=== PATIENT | male | born 1985 | race Two or more races ===

== ENCOUNTER 2022-05-08 15:14 | Inpatient (IN) | payer MEDICAID, OTHER ==
[~2022-05-08] VITALS: Ht 172.7 cm; Wt 120.5 kg
[2022-05-08] MEDS ORDERED: LORazepam 2MG/ML-1ML VIAL IV ONE (15:30)
[2022-05-08] MEDS ORDERED: cloNIDine HCL 0.1 MG TAB PO ONE (15:30)
[2022-05-08] MEDS ORDERED: THIAMINE 100mg/ml INJ (200mg/2ml VIAL) IV ONE (15:30)
[2022-05-08] MEDS ORDERED: SODIUM CHLORIDE 0.9% 1,000 ML IV ONE (15:30)
[2022-05-08 16:01] LABS: Red Cell Distribution Width 14.1 % (11.8-14.3); White Blood Cell 11.3 10^3/uL (4.4-10.8)
[2022-05-08 16:08] LABS: Basophils # (auto) 0.1 10 ^3/uL (0-0.2); Basophils % (auto) 0.8 % (0.0-2.0); Eosinophils # (auto) 0.2 10 ^3/uL (0-0.8); Eosinophils % (auto) 1.4 % (0.0-7.0); Hematocrit 49.8 % (41.0-53.0); Hemoglobin 16.8 g/dL (13.5-17.5); Lymphocytes # (auto) 4.7 10 ^3/uL (0.4-5.4); Lymphocytes % (auto) 41.9 % (10.0-50.0); Mean Corpuscular Hemoglobin 32.4 pg (28.0-32.0); Mean Corpuscular Hgb Conc. 33.8 g/dL (32.0-36.0); Monocytes # (auto) 0.9 10 ^3/uL (0-1.3); Neutrophils # (auto) 5.4 10 ^3/uL (1.6-8.6); Neutrophils % (auto) 47.9 % (37.0-80.0); Nucleated Red Blood Cells % 0.4 %; Red Blood Cells 5.19 10^6/uL (4.5-5.90)
[2022-05-08 16:18] LABS: Alanine Aminotransferase 276 U/L (16-61); Albumin 3.7 g/dL (3.4-5.0); Anion Gap 9 (5-15); Aspartate Aminotransferase 151 U/L (15-37); BUN/Creatinine Ratio 15.4; Blood Alcohol < 3.0 mg/dL (0-5); Blood Urea Nitrogen 12 mg/dL (7-18); Calcium 8.8 mg/dL (8.5-10.1); Carbon Dioxide 24 mmol/L (21-32); Chloride 106 mmol/L (98-107); GFR African American 143 mL/min; GFR Non-African American 118 mL/min; Glucose 107 mg/dL (74-106); Potassium 3.3 mmol/L (3.5-5.1); Sodium 139 mmol/L (136-145)
[2022-05-08 16:19] LABS: Urine Bacteria FEW /hpf (None Seen); Urine Blood Negative /uL (Negative); Urine Mucus FEW (None Seen); Urine Specific Gravity 1.026 (1.001-1.035); Urine WBC <1 /hpf (0 - 3)
[2022-05-08 16:20] LABS: Alkaline Phosphatase 129 U/L (45-117); Bilirubin, Total 1.2 mg/dL (0.2-1.0); Total Protein 8.2 g/dL (6.4-8.2)
[2022-05-08] MEDS ORDERED: ONDANSETRON HCL 4 MG/2 ML VIAL IV PRN (17:45)
[2022-05-08] MEDS ORDERED: MORPHINE SULFATE INJ 2 MG/ml SYRG IV PRN (17:45)
[2022-05-08] MEDS: SODIUM CHLORIDE 0.9% 1,000 ML IV SCH (18:49)
[2022-05-08] MEDS: chlordiazePOXIDE HCL 25 MG CAP PO SCH ×2 (18:49→23:58)
[2022-05-09] VITALS (7 sets, daily range): BP systolic 139–172; BP diastolic 77–97
[2022-05-09] MEDS: hydrALAZINE HCL 20 MG/ML VL IV PRN ×2 (00:05→12:53)
[2022-05-09 06:04] LABS: Basophils # (auto) 0 10 ^3/uL (0-0.2); Basophils % (auto) 0.8 % (0.0-2.0); Eosinophils # (auto) 0.2 10 ^3/uL (0-0.8); Eosinophils % (auto) 3.2 % (0.0-7.0); Hematocrit 43.9 % (41.0-53.0); Hemoglobin 14.9 g/dL (13.5-17.5); Lymphocytes # (auto) 2.2 10 ^3/uL (0.4-5.4); Lymphocytes % (auto) 36.2 % (10.0-50.0); Mean Corpuscular Hemoglobin 32.5 pg (28.0-32.0); Mean Corpuscular Volume 95.5 fL (80.0-100.0); Monocytes # (auto) 0.6 10 ^3/uL (0-1.3); Monocytes % (auto) 9.8 % (0.0-12.0); Neutrophils # (auto) 3.1 10 ^3/uL (1.6-8.6); Nucleated Red Blood Cells % 0.2 %; Red Cell Distribution Width 13.9 % (11.8-14.3); White Blood Cell 6.1 10^3/uL (4.4-10.8)
[2022-05-09] MEDS: SODIUM CHLORIDE 0.9% 1,000 ML IV SCH ×2 (06:25→10:25)
[2022-05-09 06:38] LABS: Potassium 3.5 mmol/L (3.5-5.1)
[2022-05-09 06:47] LABS: Albumin 3.2 g/dL (3.4-5.0); BUN/Creatinine Ratio 17.8; Bilirubin, Total 1.1 mg/dL (0.2-1.0); Total Protein 6.7 g/dL (6.4-8.2)
[2022-05-09] MEDS: chlordiazePOXIDE HCL 25 MG CAP PO SCH (09:45)
[2022-05-09] MEDS ORDERED: PANTOPRAZOLE 40 MG/10 ML VIAL INJ IV SCH (10:00)
[2022-05-09] MEDS ORDERED: POTASSIUM EFFERVESENT TAB 25 MEQ PO SCH (10:00)
[2022-05-09] MEDS ORDERED: chlordiazePOXIDE HCL 25 MG CAP PO SCH (10:00)
[2022-05-09] MEDS ORDERED: FOLIC ACID 1 MG, MULTIPLE VITAMIN 10 ML, MAGNESIUM SULF SDV 50% 8 MEQ, THIAMINE INJ 100... INJ SCH ×5 (12:00)
[2022-05-09] MEDS ORDERED: LORazepam 0.5 MG TAB PO ONE (14:00)
[2022-05-09] MEDS ORDERED: AMLO-496 PO (17:29)
[2022-05-10] MEDS ORDERED: chlordiazePOXIDE HCL 25 MG CAP PO SCH (10:00)
[2022-05-11] MEDS ORDERED: chlordiazePOXIDE HCL 25 MG CAP PO SCH (07:00)
== END 2022-05-09 18:04 | disposition home or self-care (01) | DRG 111 ==
LOC: ER 15:14 → TELE 17:41 → TELE-E-ADS 05-09 12:32 → TELE-CENTR 05-09 15:00
PROVIDERS: ADMIT Nurse Practitioner Family; ATTEND Student in an Organized Health Care Education/Training Program
DX: H81.10 Benign paroxysmal vertigo, unspecified ear (principal); G45.9 Transient cerebral ischemic attack, unspecified; Z20.822 Contact with and (suspected) exposure to COVID-19; D72.829 Elevated white blood cell count, unspecified; E87.6 Hypokalemia; F41.9 Anxiety disorder, unspecified; I10 Essential (primary) hypertension; I16.1 Hypertensive emergency; F10.90 Alcohol use, unspecified, uncomplicated; Y90.9 Presence of alcohol in blood, level not specified; K70.0 Alcoholic fatty liver
CPT/HCPCS: 36415; 70450; 71045; 76705; 80053; 80320; 81001; 84484; 85025; 85379; 87426; 96361; 96374; 96375; C9113; G0378

== ENCOUNTER 2022-08-04 03:17 | Emergency (ER) | payer MEDICAID ==
[~2022-08-04] VITALS: Ht 172.7 cm; Wt 118.0 kg
[~2022-08-04 03:17] MED LIST: AMLO-496 PO
[2022-08-04] MEDS ORDERED: LORazepam 2MG/ML-1ML VIAL IM ONE (04:30)
[2022-08-04] MEDS ORDERED: ONDANSETRON ODT 4 MG TAB PO ONE (04:30)
[2022-08-04 04:41] LABS: Basophils # (auto) 0.1 10 ^3/uL (0-0.2); Eosinophils # (auto) 0.1 10 ^3/uL (0-0.8); Eosinophils % (auto) 0.6 % (0.0-7.0); Hematocrit 45.7 % (41.0-53.0); Hemoglobin 16.1 g/dL (13.5-17.5); Lymphocytes # (auto) 2.6 10 ^3/uL (0.4-5.4); Lymphocytes % (auto) 28.4 % (10.0-50.0); Mean Corpuscular Hemoglobin 33.4 pg (28.0-32.0); Mean Corpuscular Hgb Conc. 35.3 g/dL (32.0-36.0); Mean Corpuscular Volume 94.7 fL (80.0-100.0); Monocytes # (auto) 0.7 10 ^3/uL (0-1.3); Monocytes % (auto) 7.5 % (0.0-12.0); Neutrophils # (auto) 5.7 10 ^3/uL (1.6-8.6); Neutrophils % (auto) 62.5 % (37.0-80.0); Nucleated Red Blood Cells % 0.1 %; Red Blood Cells 4.83 10^6/uL (4.5-5.90); White Blood Cell 9.2 10^3/uL (4.4-10.8)
[2022-08-04 04:51] LABS: Albumin 3.4 g/dL (3.4-5.0); Anion Gap 7 (5-15); BUN/Creatinine Ratio 12.8 (10.0-20.0); Blood Alcohol < 3.0 mg/dL (0-5); Blood Urea Nitrogen 10 mg/dL (7-18); Calcium 8.3 mg/dL (8.5-10.1); Carbon Dioxide 25 mmol/L (21-32); Chloride 103 mmol/L (98-107); GFR African American 143 mL/min; GFR Non-African American 118 mL/min; Glucose 139 mg/dL (74-106); Potassium 3.6 mmol/L (3.5-5.1); Sodium 135 mmol/L (136-145)
[2022-08-04 04:54] LABS: Alanine Aminotransferase 145 U/L (16-61); Alkaline Phosphatase 128 U/L (45-117); Aspartate Aminotransferase 62 U/L (15-37); Bilirubin, Total 0.8 mg/dL (0.2-1.0); Total Protein 7.8 g/dL (6.4-8.2)
[2022-08-04 06:44] LABS: Urine Bacteria NONE SEEN /hpf (None Seen); Urine Blood Negative /uL (Negative); Urine Mucus FEW (None Seen); Urine Specific Gravity 1.019 (1.001-1.035); Urine WBC <1 /hpf (0 - 3)
[2022-08-04 07:06] VITALS: BP 167/92
[2022-08-04 07:09] LABS: Alcohol, Urine < 3.0 mg/dL (0-10); Amphetamine Screen, Urine NEGATIVE (NEGATIVE); Barbiturate Scree,Urine NEGATIVE (NEGATIVE); Benzodiazephine Screen, Urine NEGATIVE (NEGATIVE); Cannabinoid Screen, Urine POSITIVE (NEGATIVE); Cocaine Screen, Urine NEGATIVE (NEGATIVE)
[2022-08-04 07:17] LABS: Opiate Scree,Urine NEGATIVE (NEGATIVE); Phencyclidine Screen, Urine NEGATIVE (NEGATIVE)
== END 2022-08-04 07:14 | disposition home or self-care (01) ==
LOC: ER 03:17
DX: F10.239 Alcohol dependence with withdrawal, unspecified (principal); F41.9 Anxiety disorder, unspecified; R74.01 Elevation of levels of liver transaminase levels; E86.0 Dehydration; Y90.9 Presence of alcohol in blood, level not specified
CPT/HCPCS: 36415; 80053; 80307; 80320; 81001; 85025; 93005; 96372; 99284; J2060; Q0162

== ENCOUNTER 2023-01-04 16:58 | Emergency (ER) | payer MEDICAID ==
[~2023-01-04] VITALS: Ht 172.7 cm; Wt 120.8 kg
[~2023-01-04 16:58] MED LIST changes: -AMLO-496 PO; +AMLO1TAB23 PO
[2023-01-04 17:20] VITALS: BP 170/105; PULSE 128; RESP 18; O2SAT 97
[2023-01-04] MEDS ORDERED: THIAMINE 100mg/ml INJ (200mg/2ml VIAL) IV ONE (17:30)
[2023-01-04] MEDS ORDERED: SODIUM CHLORIDE 0.9% 1,000 ML IV ONE (17:30)
[2023-01-04 18:06] LABS: Basophils # (auto) 0.1 10 ^3/uL (0-0.2); Eosinophils # (auto) 0.1 10 ^3/uL (0-0.8); Eosinophils % (auto) 0.7 % (0.0-7.0); Hematocrit 50.3 % (41.0-53.0); Hemoglobin 17.6 g/dL (13.5-17.5); Lymphocytes # (auto) 3.6 10 ^3/uL (0.4-5.4); Lymphocytes % (auto) 33.2 % (10.0-50.0); Mean Corpuscular Hemoglobin 32.8 pg (28.0-32.0); Mean Corpuscular Hgb Conc. 35.1 g/dL (32.0-36.0); Mean Corpuscular Volume 93.4 fL (80.0-100.0); Monocytes # (auto) 0.8 10 ^3/uL (0-1.3); Monocytes % (auto) 7.5 % (0.0-12.0); Neutrophils # (auto) 6.3 10 ^3/uL (1.6-8.6); Neutrophils % (auto) 57.6 % (37.0-80.0); Nucleated Red Blood Cells % 0.2 %; Red Blood Cells 5.38 10^6/uL (4.5-5.90); Red Cell Distribution Width 14.4 % (11.8-14.3)
[2023-01-04 18:20] LABS: Alanine Aminotransferase 171 U/L (7-40); Albumin 4.4 g/dL (3.2-4.8); Alkaline Phosphatase 154 U/L (46-116); Anion Gap 12 (5-15); Aspartate Aminotransferase 115 U/L (13-40); Blood Urea Nitrogen 6 mg/dL (9-23); Calcium 9.2 mg/dL (8.7-10.4); Carbon Dioxide 23 mmol/L (20-30); Chloride 103 mmol/L (98-107); Glucose 121 mg/dL (74-106); Potassium 3.3 mmol/L (3.5-5.1); Sodium 138 mmol/L (136-145)
[2023-01-04 18:21] LABS: Total Protein 8.3 g/dL (5.7-8.2)
[2023-01-04 18:28] LABS: Blood Alcohol 285.1 mg/dL (<10)
== END 2023-01-04 18:40 | disposition left against medical advice (07) ==
LOC: ER 16:58
DX: F10.239 Alcohol dependence with withdrawal, unspecified (principal); F41.9 Anxiety disorder, unspecified; Z53.21 Procedure and treatment not carried out due to patient leaving prior to being seen by health care provider; Y90.9 Presence of alcohol in blood, level not specified
CPT/HCPCS: 36415; 80053; 80320; 85025

== ENCOUNTER 2023-01-10 06:35 | Emergency (ER) | payer MEDICAID ==
[~2023-01-10] VITALS: Ht 172.7 cm; Wt 121.6 kg
[2023-01-10] MEDS ORDERED: SODIUM CHLORIDE 0.9% 1,000 ML IV ONE ×2 (07:00→16:15)
[2023-01-10] MEDS ORDERED: LORazepam 2MG/ML-1ML VIAL IV ONE ×2 (07:00→16:15)
[2023-01-10 07:16] LABS: Basophils # (auto) 0.1 10 ^3/uL (0-0.2); Basophils % (auto) 0.9 % (0.0-2.0); Eosinophils # (auto) 0.1 10 ^3/uL (0-0.8); Eosinophils % (auto) 1.3 % (0.0-7.0); Hematocrit 47.9 % (41.0-53.0); Hemoglobin 16.8 g/dL (13.5-17.5); Lymphocytes # (auto) 2.2 10 ^3/uL (0.4-5.4); Lymphocytes % (auto) 38.4 % (10.0-50.0); Mean Corpuscular Hemoglobin 32.7 pg (28.0-32.0); Mean Corpuscular Hgb Conc. 35.1 g/dL (32.0-36.0); Mean Corpuscular Volume 93.1 fL (80.0-100.0); Monocytes # (auto) 0.5 10 ^3/uL (0-1.3); Monocytes % (auto) 8.9 % (0.0-12.0); Neutrophils # (auto) 2.9 10 ^3/uL (1.6-8.6); Neutrophils % (auto) 50.5 % (37.0-80.0); Nucleated Red Blood Cells % 0.4 %; Red Blood Cells 5.15 10^6/uL (4.5-5.90); Red Cell Distribution Width 14.3 % (11.8-14.3); White Blood Cell 5.8 10^3/uL (4.4-10.8)
[2023-01-10 08:21] LABS: Platelet Estimate Adequate
[2023-01-10 08:35] LABS: Alanine Aminotransferase 159 U/L (7-40); Albumin 4.4 g/dL (3.2-4.8); Alkaline Phosphatase 134 U/L (46-116); Anion Gap 12 (5-15); Aspartate Aminotransferase 168 U/L (13-40); Bilirubin, Total 1.3 mg/dL (0.2-1.0); Blood Alcohol 20.5 mg/dL (<10); Calcium 9.1 mg/dL (8.5-10.1); Carbon Dioxide 24 mmol/L (20-30); Chloride 100 mmol/L (98-107); Glucose 135 mg/dL (74-106); Potassium 3.4 mmol/L (3.5-5.1); Sodium 136 mmol/L (136-145)
[2023-01-10 08:49] LABS: BUN/Creatinine Ratio 6.5 (10.0-20.0); Blood Urea Nitrogen < 5 mg/dL (9-23)
[2023-01-10 09:07] VITALS: PULSE 78; RESP 18; O2SAT 98
[2023-01-10 09:13] LABS: Acetaminophen < 2.0 UG/ML (10.0-20.0)
[2023-01-10 09:18] LABS: Salicylate < 3.0 mg/dL (2.8-20.0)
[2023-01-10 09:24] LABS: Lipase 74 U/L (12-53)
[2023-01-10 09:25] LABS: Magnesium 1.6 mg/dL (1.6-2.6)
[2023-01-10] MEDS ORDERED: PANTOPRAZOLE 40 MG TAB PO ONE (10:30)
[2023-01-10] MEDS ORDERED: ONDANSETRON HCL 4 MG/2 ML VIAL IV ONE (10:30)
[2023-01-10] MEDS ORDERED: POTASSIUM EFFERVESENT TAB 25 MEQ PO ONE (16:15)
[2023-01-10 19:30] VITALS: PULSE 92; RESP 17; O2SAT 95
[2023-01-10 20:00] VITALS: TEMP 97.8
[2023-01-10] MEDS ORDERED: CHL25C GT (23:24)
[2023-01-10 23:30] VITALS: BP 155/94; PULSE 81; RESP 15; O2SAT 95
== END 2023-01-10 23:51 | disposition home or self-care (01) ==
LOC: ER 06:35
DX: F10.139 Alcohol abuse with withdrawal, unspecified (principal); F41.9 Anxiety disorder, unspecified; E86.0 Dehydration; I10 Essential (primary) hypertension; E87.6 Hypokalemia; R74.8 Abnormal levels of other serum enzymes; Z79.899 Other long term (current) drug therapy; Y90.0 Blood alcohol level of less than 20 mg/100 ml
CPT/HCPCS: 36415; 71045; 80053; 80320; 80329; 83690; 83735; 84484; 85025; 93005; 96361; 96374; 96375; 96376; 99285; J2060; J2405; J7030

== ENCOUNTER 2023-05-18 14:37 | Inpatient (IN) | payer MEDICAID ==
[~2023-05-18] VITALS: Ht 172.7 cm; Wt 121.6 kg
[~2023-05-18 14:37] MED LIST changes: +CHL25C GT
[2023-05-18] MEDS: levETIRAcetam 1000 mg/100ml 100 ML IV ONE (17:16)
[2023-05-18] MEDS: MIDAZOLAM HCL 2MG/2ML 2ml VIAL (1mg/ml) IV ONE ×2 (17:16→21:20)
[2023-05-18] MEDS: SODIUM CHLORIDE 0.9% 1,000 ML IV ONE (17:49)
[2023-05-18 17:50] LABS: Urine Bacteria NONE SEEN /hpf (None Seen); Urine Blood Negative /uL (Negative); Urine Clarity Clear (Clear); Urine Protein, UAD Negative (Negative); Urine Specific Gravity 1.004 (1.001-1.035); Urine WBC 1 /hpf (0 - 3)
[2023-05-18] MEDS: ONDANSETRON HCL 4 MG/2 ML VIAL IV ONE (17:50)
[2023-05-18] MEDS: KETOROLAC TROMETH 30 MG/ML 1ML VIAL IV ONE (17:50)
[2023-05-18 17:52] LABS: Urine Color STRAW (Yellow)
[2023-05-18 18:03] LABS: Basophils # (auto) 0 10 ^3/uL (0-0.2); Eosinophils # (auto) 0 10 ^3/uL (0-0.8); Hemoglobin 14.5 g/dL (13.5-17.5); Monocytes # (auto) 0.4 10 ^3/uL (0-1.3); Red Cell Distribution Width 15.3 % (11.8-14.3)
[2023-05-18 18:04] LABS: Basophils % (auto) 0.5 % (0.0-2.0); Eosinophils % (auto) 0.5 % (0.0-7.0); Hematocrit 43.7 % (41.0-53.0); Lymphocytes # (auto) 1.8 10 ^3/uL (0.4-5.4); Lymphocytes % (auto) 28.9 % (10.0-50.0); Mean Corpuscular Hemoglobin 32.2 pg (28.0-32.0); Mean Corpuscular Hgb Conc. 33.1 g/dL (32.0-36.0); Mean Corpuscular Volume 97.1 fL (80.0-100.0); Neutrophils # (auto) 4.1 10 ^3/uL (1.6-8.6); Neutrophils % (auto) 64.1 % (37.0-80.0); Nucleated Red Blood Cells % 0.1 %; White Blood Cell 6.4 10^3/uL (4.4-10.8)
[2023-05-18 18:18] LABS: INR 1.31 (0.9-1.15); Partial Thromboplastin Time 31.3 SEC (24.5-34.5); Prothrombin Time 13.5 sec (9.3-11.8)
[2023-05-18 18:19] LABS: Alanine Aminotransferase 100 U/L (7-40); Albumin 3.6 g/dL (3.2-4.8); Alkaline Phosphatase 167 U/L (46-116); Anion Gap 10 (5-15); Aspartate Aminotransferase 212 U/L (13-40); BUN/Creatinine Ratio 7.8 (10.0-20.0); Bilirubin, Total 1.1 mg/dL (0.2-1.0); Blood Urea Nitrogen 5 mg/dL (9-23); Calcium 8.4 mg/dL (8.5-10.1); Carbon Dioxide 25 mmol/L (20-30); Chloride 106 mmol/L (98-107); Glucose 86 mg/dL (74-106); Sodium 141 mmol/L (136-145); Total Protein 6.7 g/dL (5.7-8.2)
[2023-05-18 20:17] LABS: Amphetamine Screen, Urine Neg (NEGATIVE); Barbiturate Scree,Urine Neg (NEGATIVE); Benzodiazephine Screen, Urine Neg (NEGATIVE); Cannabinoid Screen, Urine Neg (NEGATIVE); Cocaine Screen, Urine Neg (NEGATIVE); Opiate Scree,Urine Neg (NEGATIVE); Phencyclidine Screen, Urine Neg (NEGATIVE)
[2023-05-18] MEDS ORDERED: ONDANSETRON HCL 4 MG/2 ML VIAL IV PRN (21:15)
[2023-05-18] MEDS ORDERED: NITROGLYCERIN 0.4 MG SL TAB SL PRN (21:15)
[2023-05-18] MEDS ORDERED: MORPHINE SULFATE INJ 2 MG/ml SYRG IV PRN (21:15)
[2023-05-18] MEDS ORDERED: DOCUSATE SOD 100 MG CAP PO PRN (21:15)
[2023-05-18] MEDS ORDERED: HYDROcodone-ACET 5/325MG TAB PO PRN (21:15)
[2023-05-18] MEDS ORDERED: TRAZ-227 PO (21:32)
[2023-05-18] MEDS ORDERED: AMLO1TAB22 PO (21:32)
[2023-05-18] MEDS ORDERED: LOSA50TA46 PO (21:32)
[2023-05-18] MEDS: traZODone HCL 50 MG TAB PO SCH (22:11)
[2023-05-18] MEDS: chlordiazePOXIDE HCL 25 MG CAP PO SCH (22:11)
[2023-05-18] MEDS: PANTOPRAZOLE 40 MG/10 ML VIAL INJ IV SCH (22:11)
[2023-05-18] MEDS: SODIUM CHLORIDE 0.9% 1,000 ML IV SCH (22:13)
[2023-05-18] MEDS: levETIRAcetam 500 mg/100ml 100 ML IV SCH (22:13)
[2023-05-19] VITALS (9 sets, daily range): BP systolic 123–162; BP diastolic 74–91; PULSE 81–105; RESP 16–20; TEMP 97.9–98.4; O2SAT 93–96
[2023-05-19 05:21] LABS: Basophils # (auto) 0 10 ^3/uL (0-0.2); Eosinophils # (auto) 0.1 10 ^3/uL (0-0.8); Lymphocytes # (auto) 1.8 10 ^3/uL (0.4-5.4); Monocytes # (auto) 0.4 10 ^3/uL (0-1.3); Neutrophils # (auto) 2.2 10 ^3/uL (1.6-8.6); White Blood Cell 4.6 10^3/uL (4.4-10.8)
[2023-05-19 05:28] LABS: Basophils % (auto) 0.7 % (0.0-2.0); Eosinophils % (auto) 2.9 % (0.0-7.0); Hematocrit 38.6 % (41.0-53.0); Lymphocytes % (auto) 38.9 % (10.0-50.0); Mean Corpuscular Hgb Conc. 33.7 g/dL (32.0-36.0); Monocytes % (auto) 9.3 % (0.0-12.0); Neutrophils % (auto) 48.2 % (37.0-80.0); Nucleated Red Blood Cells % 0.2 %; Red Blood Cells 3.94 10^6/uL (4.5-5.90); Red Cell Distribution Width 15.5 % (11.8-14.3)
[2023-05-19 05:40] LABS: Alanine Aminotransferase 86 U/L (7-40); Albumin 3.3 g/dL (3.2-4.8); Alkaline Phosphatase 151 U/L (46-116); Anion Gap 9 (5-15); Aspartate Aminotransferase 180 U/L (13-40); BUN/Creatinine Ratio 8.3 (10.0-20.0); Blood Urea Nitrogen 5 mg/dL (9-23); Calcium 8.5 mg/dL (8.5-10.1); Carbon Dioxide 23 mmol/L (20-30); Chloride 106 mmol/L (98-107); Glucose 71 mg/dL (74-106); Potassium 3.8 mmol/L (3.5-5.1); Sodium 138 mmol/L (136-145)
[2023-05-19 05:41] LABS: Bilirubin, Total 1.4 mg/dL (0.2-1.0); Total Protein 6.4 g/dL (5.7-8.2)
[2023-05-19 07:34] LABS: RBC Morphology Normal
[2023-05-19 07:35] LABS: Platelet Estimate Decreased
[2023-05-19] MEDS: LOSARTAN POTASSIUM 50 MG TAB PO SCH (10:00)
[2023-05-19] MEDS: amLODIPine BESYLATE 5 MG TAB PO SCH (10:00)
[2023-05-19] MEDS ORDERED: FOLIC ACID 1 MG, MULTIPLE VITAMIN 10 ML, MAGNESIUM SULF SDV 50% 8 MEQ, THIAMINE INJ 100... INJ SCH (10:30)
[2023-05-19] MEDS: LORazepam 2MG/ML-1ML VIAL IV PRN (11:16)
[2023-05-19] MEDS: chlordiazePOXIDE HCL 25 MG CAP PO SCH (11:58)
[2023-05-19] MEDS: FOLIC ACID 1 MG, MULTIPLE VITAMIN 10 ML, MAGNESIUM SULF SDV 50% 8 MEQ, THIAMINE INJ 100... INJ SCH (18:07)
[2023-05-19] MEDS: ACETAMINOPHEN 325 MG TAB PO PRN (22:52)
[2023-05-20] MEDS ORDERED: chlordiazePOXIDE HCL 25 MG CAP PO SCH (01:16)
[2023-05-20 06:00] VITALS: BP 112/62; PULSE 82; RESP 16; TEMP 97.9; O2SAT 95
[2023-05-20 06:07] LABS: Basophils # (auto) 0 10 ^3/uL (0-0.2); Eosinophils # (auto) 0.2 10 ^3/uL (0-0.8); Eosinophils % (auto) 3.9 % (0.0-7.0); Lymphocytes # (auto) 1.4 10 ^3/uL (0.4-5.4); Mean Corpuscular Hemoglobin 32.7 pg (28.0-32.0); Monocytes # (auto) 0.4 10 ^3/uL (0-1.3); White Blood Cell 4.1 10^3/uL (4.4-10.8)
[2023-05-20 06:10] LABS: Basophils % (auto) 0.7 % (0.0-2.0); Hematocrit 42.5 % (41.0-53.0); Hemoglobin 14.4 g/dL (13.5-17.5); Lymphocytes % (auto) 33.7 % (10.0-50.0); Mean Corpuscular Hgb Conc. 33.8 g/dL (32.0-36.0); Mean Corpuscular Volume 96.7 fL (80.0-100.0); Monocytes % (auto) 8.6 % (0.0-12.0); Neutrophils # (auto) 2.2 10 ^3/uL (1.6-8.6); Neutrophils % (auto) 53.1 % (37.0-80.0); Nucleated Red Blood Cells % 0.2 %; Red Cell Distribution Width 14.7 % (11.8-14.3)
[2023-05-20 06:20] LABS: Alanine Aminotransferase 85 U/L (7-40); Albumin 3.5 g/dL (3.2-4.8); Alkaline Phosphatase 155 U/L (46-116); Anion Gap 7 (5-15); Aspartate Aminotransferase 158 U/L (13-40); BUN/Creatinine Ratio 8.5 (10.0-20.0); Bilirubin, Total 2.6 mg/dL (0.2-1.0); Blood Urea Nitrogen 5 mg/dL (9-23); Calcium 8.6 mg/dL (8.5-10.1); Carbon Dioxide 25 mmol/L (20-30); Chloride 105 mmol/L (98-107); Glucose 97 mg/dL (74-106); Potassium 3.4 mmol/L (3.5-5.1); Sodium 137 mmol/L (136-145); Total Protein 6.5 g/dL (5.7-8.2)
[2023-05-20] MEDS: SUCRALFATE 1 GM/10 ML ORAL SUSP PO SCH (06:28)
[2023-05-20 08:00] VITALS: PULSE 90
[2023-05-20 08:30] VITALS: BP 140/82; PULSE 90; RESP 17; TEMP 98.1; O2SAT 93
[2023-05-21] MEDS ORDERED: chlordiazePOXIDE HCL 25 MG CAP PO SCH (01:17)
[2023-05-21 08:46] LABS: Hepatitis B Surface Antigen Negative (Negative)
[2023-05-21 09:06] LABS: Hepatitis A Ab IgM Negative
[2023-05-21 09:07] LABS: Hepatitis B Core IgM Negative; Hepatitis C Antibody Negative (Negative)
[2023-05-21 09:16] LABS: Hepatitis B Core Total AB Negative (Negative)
[2023-05-22] MEDS ORDERED: chlordiazePOXIDE HCL 25 MG CAP PO SCH (07:00)
[2023-05-25 08:54] LABS: Hepatitis B Surface Antibody Positive (Negative)
[2023-05-25 09:06] LABS: Hepatitis B Surface Antigen Negative (Negative)
[2023-05-25 09:27] LABS: Hepatitis C Antibody Negative (Negative)
[2023-05-25 09:34] LABS: Hepatitis A Total Antibody Positive (Negative)
== END 2023-05-20 08:40 | disposition left against medical advice (07) | DRG 53 ==
LOC: ER 14:37 → EDBD 14:37 → TELE 21:21 → TELE-CENTR 22:52
PROVIDERS: ADMIT Nurse Practitioner Family; ATTEND Nurse Practitioner Acute Care
DX: G40.89 Other seizures (principal); F10.231 Alcohol dependence with withdrawal delirium; K92.0 Hematemesis; F10.229 Alcohol dependence with intoxication, unspecified; E11.9 Type 2 diabetes mellitus without complications; D69.59 Other secondary thrombocytopenia; E66.01 Morbid (severe) obesity due to excess calories; K70.9 Alcoholic liver disease, unspecified; Y90.7 Blood alcohol level of 200-239 mg/100 ml; K29.20 Alcoholic gastritis without bleeding; F41.9 Anxiety disorder, unspecified; I10 Essential (primary) hypertension; K76.0 Fatty (change of) liver, not elsewhere classified; Z71.41 Alcohol abuse counseling and surveillance of alcoholic; Z68.41 Body mass index [BMI] 40.0-44.9, adult
CPT/HCPCS: 36415; 70450; 71045; 76705; 80053; 80074; 80307; 80320; 81001; 82140; 82728; 84484; 85025; 85610; 85730; 86704; 86706; 86708; 86803; 87340; 96365; 99291; C9113; G0378; J2250

== ENCOUNTER 2023-12-05 14:36 | Inpatient (IN) | payer MEDICAID ==
[~2023-12-05] VITALS: Ht 170.2 cm; Wt 110.6 kg
[~2023-12-05 14:36] MED LIST changes: +AMLO1TAB22 PO; +LOSA-534 PO; +TRAZ-227 PO
[2023-12-05 16:00] VITALS: PULSE 100; RESP 20; O2SAT 98
[2023-12-05 16:09] LABS: Basophils # (auto) 0.1 10 ^3/uL (0-0.2); Basophils % (auto) 1.1 % (0.0-2.0); Eosinophils # (auto) 0.1 10 ^3/uL (0-0.8); Eosinophils % (auto) 1.2 % (0.0-7.0); Hematocrit 41.3 % (41.0-53.0); Hemoglobin 14.3 g/dL (13.5-17.5); Lymphocytes # (auto) 2.2 10 ^3/uL (0.4-5.4); Lymphocytes % (auto) 22.7 % (10.0-50.0); Mean Corpuscular Hemoglobin 36.6 pg (28.0-32.0); Mean Corpuscular Hgb Conc. 34.7 g/dL (32.0-36.0); Mean Corpuscular Volume 105.6 fL (80.0-100.0); Monocytes # (auto) 1.1 10 ^3/uL (0-1.3); Monocytes % (auto) 11.1 % (0.0-12.0); Neutrophils # (auto) 6.2 10 ^3/uL (1.6-8.6); Neutrophils % (auto) 63.9 % (37.0-80.0); Nucleated Red Blood Cells % 0.1 %; Platelet Count (auto) 131 10^3/uL (140-450); Red Blood Cells 3.91 10^6/uL (4.5-5.90); Red Cell Distribution Width 16.6 % (11.8-14.3); White Blood Cell 9.6 10^3/uL (4.4-10.8)
[2023-12-05 16:27] LABS: Alanine Aminotransferase 79 U/L (7-40); Albumin 2.7 g/dL (3.2-4.8); Alkaline Phosphatase 158 U/L (46-116); Anion Gap 5 (5-15); Aspartate Aminotransferase 244 U/L (13-40); BUN/Creatinine Ratio 9.7 (10.0-20.0); Blood Urea Nitrogen 6 mg/dL (9-23); Calcium 8.4 mg/dL (8.7-10.4); Carbon Dioxide 24 mmol/L (20-30); Chloride 105 mmol/L (98-107); Glucose 105 mg/dL (74-106); Potassium 4.2 mmol/L (3.5-5.1); Sodium 134 mmol/L (136-145)
[2023-12-05 16:28] LABS: Bilirubin, Total 5.7 mg/dL (0.2-1.0); Total Protein 7.4 g/dL (5.7-8.2)
[2023-12-05 16:41] LABS: INR 1.76 (0.9-1.15); Partial Thromboplastin Time 31.3 SEC (24.5-34.5); Prothrombin Time 17.9 sec (9.3-11.8)
[2023-12-05 19:35] VITALS: PULSE 89; RESP 21; O2SAT 97
[2023-12-05 20:58] LABS: Urine Bacteria None Seen /hpf (None Seen)
[2023-12-05 21:18] LABS: Urine Blood TRACE /uL (Negative); Urine Clarity Clear (Clear); Urine Color Dark-Yellow (Yellow); Urine Mucus FEW (None Seen); Urine Protein, UAD TRACE (Negative); Urine Specific Gravity 1.023 (1.001-1.035); Urine Urobilinogen 8 mg/dL (Negative); Urine WBC 1 /hpf (0 - 3)
[2023-12-05] MEDS ORDERED: HYDROcodone-ACET 5/325MG TAB PO PRN (21:30)
[2023-12-05] MEDS ORDERED: MORPHINE SULFATE INJ 2 MG/ml SYRG IV PRN ×2 (21:30→23:00)
[2023-12-05] MEDS ORDERED: hydrALAZINE HCL 20 MG/ML VL IV PRN (21:30)
[2023-12-05] MEDS ORDERED: ONDANSETRON HCL 4 MG/2 ML VIAL IV PRN (21:30)
[2023-12-05] MEDS ORDERED: DEXTROSE (50%) 50ML SYRG IV PRN (21:30)
[2023-12-05] MEDS ORDERED: DOCUSATE SOD 100 MG CAP PO PRN (21:30)
[2023-12-05] MEDS ORDERED: IBUPROFEN 600 MG TAB PO PRN (21:30)
[2023-12-05] MEDS ORDERED: NITROGLYCERIN 0.4 MG SL TAB SL PRN (23:00)
[2023-12-05] MEDS: ALBUMIN 25% 100 ML IV ONE (23:16)
[2023-12-05] MEDS: FAMOTIDINE (10MG/ML) 2ML VL IV SCH (23:16)
[2023-12-05] MEDS: LACTULOSE 20Gm/30ML SOLN PO SCH (23:16)
[2023-12-05] MEDS: ACCU-CHEK COMFORT CURVE STRIP VI SCH (23:17)
[2023-12-05] MEDS: InsuLIN REG 1unit/0.01ml Soln (100units/ml) SC SCH (23:17)
[2023-12-05] MEDS: SODIUM CHLORIDE 0.9% 1,000 ML IV SCH (23:17)
[2023-12-06] VITALS (9 sets, daily range): BP systolic 115–155; BP diastolic 78–84; PULSE 74–97; RESP 16–22; TEMP 98–98.4; O2SAT 95–96
[2023-12-06] MEDS: SPIRONOLACTONE 25 MG TAB PO SCH (05:52)
[2023-12-06 06:16] LABS: Basophils # (auto) 0.1 10 ^3/uL (0-0.2); Basophils % (auto) 1.3 % (0.0-2.0); Eosinophils # (auto) 0.2 10 ^3/uL (0-0.8); Hemoglobin 12.9 g/dL (13.5-17.5); Lymphocytes # (auto) 2.2 10 ^3/uL (0.4-5.4); Neutrophils # (auto) 4.7 10 ^3/uL (1.6-8.6); Nucleated Red Blood Cells % 0.2 %
[2023-12-06 06:20] LABS: Eosinophils % (auto) 2.9 % (0.0-7.0); Hematocrit 36.9 % (41.0-53.0); Lymphocytes % (auto) 26.4 % (10.0-50.0); Mean Corpuscular Hemoglobin 36.8 pg (28.0-32.0); Mean Corpuscular Hgb Conc. 34.9 g/dL (32.0-36.0); Mean Corpuscular Volume 105.5 fL (80.0-100.0); Monocytes % (auto) 12.7 % (0.0-12.0); Neutrophils % (auto) 56.7 % (37.0-80.0); Platelet Count (auto) 109 10^3/uL (140-450); Red Cell Distribution Width 16.4 % (11.8-14.3); White Blood Cell 8.2 10^3/uL (4.4-10.8)
[2023-12-06 06:35] LABS: Alanine Aminotransferase 68 U/L (7-40); Alkaline Phosphatase 125 U/L (46-116); Calcium 8.5 mg/dL (8.7-10.4); Carbon Dioxide 23 mmol/L (20-30); Chloride 107 mmol/L (98-107); Glucose 90 mg/dL (74-106); Potassium 3.9 mmol/L (3.5-5.1)
[2023-12-06 06:36] LABS: Albumin 2.5 g/dL (3.2-4.8); Anion Gap 3 (5-15); Aspartate Aminotransferase 186 U/L (13-40); Blood Urea Nitrogen 8 mg/dL (9-23); Sodium 133 mmol/L (136-145)
[2023-12-06 06:37] LABS: Bilirubin, Total 5.3 mg/dL (0.2-1.0); Total Protein 6.5 g/dL (5.7-8.2)
[2023-12-06] MEDS: THIAMINE 100mg/ml INJ (200mg/2ml VIAL) IV SCH (09:52)
[2023-12-06] MEDS: MULTIPLE VITAMIN TAB PO SCH (09:54)
[2023-12-06] MEDS: FOLIC ACID 1 MG in D5W 5% 50 ML INJ SCH (09:55)
[2023-12-06] MEDS: amLODIPine BESYLATE 5 MG TAB PO SCH (09:56)
[2023-12-06] MEDS: PHYTONADIONE(VitK) ORAL Susp 10mg/10ml(1mg/ml) PO ONE (13:45)
[2023-12-06] MEDS ORDERED: chlordiazePOXIDE HCL 25 MG CAP PO PRN (13:45)
[2023-12-06 14:18] LABS: Lipase 66 U/L (12-53)
[2023-12-06 14:20] LABS: Amylase 82 U/L (30-118)
[2023-12-06] MEDS: SUCRALFATE 1 GM TAB PO SCH (16:32)
[2023-12-06] MEDS: chlordiazePOXIDE HCL 5 MG CAP PO SCH (16:38)
[2023-12-06] MEDS: FUROSEMIDE 20 MG/2 ML VIAL IV SCH (17:37)
[2023-12-06] MEDS: LACTULOSE 20Gm/30ML SOLN PO SCH (21:28)
[2023-12-07] VITALS (7 sets, daily range): BP systolic 110–141; BP diastolic 70–84; PULSE 82–90; RESP 17–19; TEMP 97.7–98.4; O2SAT 95–98
[2023-12-07 06:11] LABS: Basophils # (auto) 0.1 10 ^3/uL (0-0.2); Monocytes # (auto) 1.1 10 ^3/uL (0-1.3); Platelet Count (auto) 110 10^3/uL (140-450)
[2023-12-07 06:14] LABS: Basophils % (auto) 1.4 % (0.0-2.0); Eosinophils # (auto) 0.3 10 ^3/uL (0-0.8); Hematocrit 37.3 % (41.0-53.0); Hemoglobin 12.9 g/dL (13.5-17.5); Lymphocytes # (auto) 2.2 10 ^3/uL (0.4-5.4); Lymphocytes % (auto) 24.9 % (10.0-50.0); Mean Corpuscular Hemoglobin 36.7 pg (28.0-32.0); Mean Corpuscular Hgb Conc. 34.7 g/dL (32.0-36.0); Mean Corpuscular Volume 105.8 fL (80.0-100.0); Monocytes % (auto) 12.6 % (0.0-12.0); Neutrophils # (auto) 5.1 10 ^3/uL (1.6-8.6); Neutrophils % (auto) 58.1 % (37.0-80.0); Nucleated Red Blood Cells % 0.1 %; Red Blood Cells 3.52 10^6/uL (4.5-5.90); Red Cell Distribution Width 16.4 % (11.8-14.3); White Blood Cell 8.8 10^3/uL (4.4-10.8)
[2023-12-07 06:28] LABS: INR 1.72 (0.9-1.15); Prothrombin Time 17.5 sec (9.3-11.8)
[2023-12-07 06:40] LABS: Alanine Aminotransferase 69 U/L (7-40); Alkaline Phosphatase 115 U/L (46-116); Anion Gap 4 (5-15); Aspartate Aminotransferase 172 U/L (13-40); BUN/Creatinine Ratio 16.1 (10.0-20.0); Blood Urea Nitrogen 9 mg/dL (9-23); Calcium 8.1 mg/dL (8.7-10.4); Carbon Dioxide 24 mmol/L (20-30); Chloride 107 mmol/L (98-107); Lipase 90 U/L (12-53); Potassium 3.8 mmol/L (3.5-5.1); Sodium 135 mmol/L (136-145)
[2023-12-07 06:41] LABS: Albumin 2.4 g/dL (3.2-4.8); Bilirubin, Total 4.8 mg/dL (0.2-1.0); Total Protein 6.3 g/dL (5.7-8.2)
[2023-12-07 06:42] LABS: Glucose 89 mg/dL (74-106)
[2023-12-07] MEDS ORDERED: chlordiazePOXIDE HCL 5 MG CAP PO PRN (11:15)
[2023-12-07 20:08] LABS: Body Fluid Polymorphonuclear 12 % (0-25); Body Fluid Red Blood Cells 295 CUMM (0-2000); Body Fluid White Blood Cells 268 CUMM (0-200)
[2023-12-07] MEDS: LACTULOSE 20Gm/30ML SOLN PO SCH (21:24)
[2023-12-07] MEDS: FAMOTIDINE 20 MG TAB PO SCH (21:24)
[2023-12-08] VITALS (8 sets, daily range): BP systolic 123–166; BP diastolic 72–88; PULSE 84–95; RESP 16–20; TEMP 98–98.5; O2SAT 94–98
[2023-12-08 06:58] LABS: Alanine Aminotransferase 73 U/L (7-40); Alkaline Phosphatase 138 U/L (46-116); Anion Gap 3 (5-15); BUN/Creatinine Ratio 10.9 (10.0-20.0); Blood Urea Nitrogen 7 mg/dL (9-23); Calcium 8.3 mg/dL (8.7-10.4); Carbon Dioxide 26 mmol/L (20-30); Chloride 103 mmol/L (98-107); Glucose 100 mg/dL (74-106); LDL Cholesterol 88 mg/dL (< 100); Magnesium 1.7 mg/dL (1.6-2.6); Potassium 3.4 mmol/L (3.5-5.1); Sodium 132 mmol/L (136-145); Triglycerides 127 mg/dL (< 150)
[2023-12-08 06:59] LABS: Albumin 2.4 g/dL (3.2-4.8); Aspartate Aminotransferase 199 U/L (13-40); Cholesterol 144 mg/dL (< 200); HDL Cholesterol 7 mg/dL (40-59); INR 1.72 (0.9-1.15); Prothrombin Time 17.5 sec (9.3-11.8)
[2023-12-08 07:00] LABS: Bilirubin, Total 4.9 mg/dL (0.2-1.0); Total Protein 6.5 g/dL (5.7-8.2)
[2023-12-08 07:02] LABS: Basophils # (auto) 0.1 10 ^3/uL (0-0.2); Basophils % (auto) 1.1 % (0.0-2.0); Eosinophils # (auto) 0.2 10 ^3/uL (0-0.8); Eosinophils % (auto) 1.8 % (0.0-7.0); Hematocrit 40.6 % (41.0-53.0); Hemoglobin 14.4 g/dL (13.5-17.5); Lymphocytes # (auto) 2.2 10 ^3/uL (0.4-5.4); Lymphocytes % (auto) 24.1 % (10.0-50.0); Mean Corpuscular Hemoglobin 37.8 pg (28.0-32.0); Mean Corpuscular Hgb Conc. 35.6 g/dL (32.0-36.0); Mean Corpuscular Volume 106.2 fL (80.0-100.0); Monocytes # (auto) 1.1 10 ^3/uL (0-1.3); Monocytes % (auto) 11.8 % (0.0-12.0); Neutrophils # (auto) 5.6 10 ^3/uL (1.6-8.6); Neutrophils % (auto) 61.2 % (37.0-80.0); Nucleated Red Blood Cells % 0.2 %; Platelet Count (auto) 112 10^3/uL (140-450); Red Blood Cells 3.82 10^6/uL (4.5-5.90); Red Cell Distribution Width 16.4 % (11.8-14.3); White Blood Cell 9.2 10^3/uL (4.4-10.8)
[2023-12-08] MEDS: THIAMINE HCL 100 MG TAB PO SCH (09:21)
[2023-12-08] MEDS: FOLIC ACID 1 MG TAB PO SCH (09:22)
[2023-12-08 09:26] LABS: Lipase 92 U/L (12-53)
[2023-12-08] MEDS: POTASSIUM CHL 20 Meq TABLET PO ONE (11:51)
[2023-12-08 12:06] LABS: Protein, Body Fluid 1.4 g/dL (.)
[2023-12-08 20:05] LABS: Body Fluid Polymorphonuclear 3 % (0-25); Body Fluid Red Blood Cells 2030 CUMM (0-2000); Body Fluid White Blood Cells 600 CUMM (0-200)
[2023-12-09 01:00] VITALS: BP 131/73; PULSE 90; RESP 17; TEMP 98.4; O2SAT 97
[2023-12-09 05:00] VITALS: BP 112/78; PULSE 90; RESP 18; TEMP 98.2; O2SAT 94
[2023-12-09 05:49] LABS: Basophils # (auto) 0.1 10 ^3/uL (0-0.2); Hemoglobin 13.4 g/dL (13.5-17.5); Lymphocytes # (auto) 2.9 10 ^3/uL (0.4-5.4); Monocytes # (auto) 1.1 10 ^3/uL (0-1.3); Neutrophils # (auto) 6.1 10 ^3/uL (1.6-8.6); Red Blood Cells 3.59 10^6/uL (4.5-5.90); White Blood Cell 10.4 10^3/uL (4.4-10.8)
[2023-12-09 05:52] LABS: Eosinophils # (auto) 0.3 10 ^3/uL (0-0.8); Eosinophils % (auto) 2.5 % (0.0-7.0); Lymphocytes % (auto) 27.6 % (10.0-50.0); Mean Corpuscular Hemoglobin 37.2 pg (28.0-32.0); Mean Corpuscular Hgb Conc. 35.2 g/dL (32.0-36.0); Mean Corpuscular Volume 105.7 fL (80.0-100.0); Monocytes % (auto) 10.6 % (0.0-12.0); Neutrophils % (auto) 58.3 % (37.0-80.0); Nucleated Red Blood Cells % 0.1 %; Platelet Count (auto) 109 10^3/uL (140-450)
[2023-12-09 06:06] LABS: Alanine Aminotransferase 74 U/L (7-40); Albumin 2.2 g/dL (3.2-4.8); Alkaline Phosphatase 151 U/L (46-116); Anion Gap 5 (5-15); Aspartate Aminotransferase 178 U/L (13-40); BUN/Creatinine Ratio 15.7 (10.0-20.0); Blood Urea Nitrogen 8 mg/dL (9-23); Calcium 7.9 mg/dL (8.7-10.4); Carbon Dioxide 23 mmol/L (20-30); Chloride 103 mmol/L (98-107); Glucose 86 mg/dL (74-106); Magnesium 1.7 mg/dL (1.6-2.6); Potassium 3.9 mmol/L (3.5-5.1); Sodium 131 mmol/L (136-145)
[2023-12-09 06:07] LABS: Bilirubin, Total 3.8 mg/dL (0.2-1.0)
[2023-12-09 08:00] VITALS: PULSE 92
[2023-12-09 08:25] VITALS: BP 128/79; PULSE 92; RESP 20; TEMP 97.8; O2SAT 95
[2023-12-09] MEDS ORDERED: LACT10SO3 PO (09:38)
[2023-12-09] MEDS ORDERED: FURO1TAB33 PO (09:38)
[2023-12-09] MEDS ORDERED: THIA100T13 PO (09:38)
[2023-12-09] MEDS ORDERED: MULTTAB99 PO (09:38)
[2023-12-09] MEDS ORDERED: SPIR25TA PO (09:38)
[2023-12-09] MEDS ORDERED: FOLI-119 PO (09:38)
[2023-12-09 11:32] VITALS: BP 112/78; TEMP 36.6
[2023-12-09 12:33] VITALS: BP 119/76; PULSE 86; RESP 20; TEMP 98; O2SAT 96
[2023-12-10 13:06] LABS: Protein, Body Fluid 2.3 g/dL (.)
== END 2023-12-09 13:30 | disposition home or self-care (01) | DRG 280 ==
LOC: ER 14:36 → TELE 22:50 → TELE-CENTR 12-06 02:42
PROVIDERS: ADMIT Nurse Practitioner Family; ATTEND Internal Medicine Geriatric Medicine
PROC: 0W9G3ZZ Drainage of Peritoneal Cavity, Percutaneous Approach (ICD-10-PCS; 2023-12-07)
PROC: 0W9B3ZZ Drainage of Left Pleural Cavity, Percutaneous Approach (ICD-10-PCS; principal; 2023-12-08)
DX: K70.31 Alcoholic cirrhosis of liver with ascites (principal); D69.6 Thrombocytopenia, unspecified; D68.9 Coagulation defect, unspecified; E44.0 Moderate protein-calorie malnutrition; J91.8 Pleural effusion in other conditions classified elsewhere; E87.1 Hypo-osmolality and hyponatremia; K76.82 Hepatic encephalopathy; K76.0 Fatty (change of) liver, not elsewhere classified; N20.0 Calculus of kidney; I10 Essential (primary) hypertension; E11.9 Type 2 diabetes mellitus without complications; E66.01 Morbid (severe) obesity due to excess calories; R16.1 Splenomegaly, not elsewhere classified; J98.11 Atelectasis; Z68.41 Body mass index [BMI] 40.0-44.9, adult
CPT/HCPCS: 32555; 36415; 49083; 71045; 74176; 76705; 76942; 80053; 80061; 81001; 82140; 82150; 82962; 83690; 83735; 83986; 85025; 85610; 85730; 87205; 89051; G0378; J3490; J7060; P9047

== ENCOUNTER 2024-07-10 11:30 | Inpatient (IN) | payer MEDICAID ==
[~2024-07-10] VITALS: Ht 172.7 cm; Wt 106.5 kg
[~2024-07-10 11:30] MED LIST changes: -AMLO1TAB22 PO; +ASPI-325 PO; +AZIT-43 PO; +CEPH250C PO; +FOLI-119 PO; +FURO20TA4 PO; +LACT10SO3 PO; +MULTTAB99 PO; +SPIR25TA PO; +THIA100T10 PO; +THIA100T13 PO
--- NOTE | 2024-07-10 12:01 | ED.PDOC ---
History of Present Illness HPI Comments 39-year-old male brought by family because possible a seizure. Patient does not have a history of seizure disorder. He does have a history of alcohol abuse which he has stopped drinking seven months ago. Patient states that he was having headache all day yesterday and this morning he could not get out of bed. He felt like the room was spinning. Unable to stand on his feet without feeling dizzy. He did have a bout of vomiting while entering the ER. He was altered twice for few minutes while driving to the ER. Denies hypertension diabetes. Other than alcoholic liver disease no other past medical history. Chief Complaint: Seizure Time Seen by MD: 11:41 Primary Care Provider: Elbert Ferro Reviewed Notes: Nurses Notes, Medications, Allergies Allergies: Coded Allergies: NO KNOWN ALLERGIES (Unverified , 05/08/22) Home Meds Active Scripts Cephalexin (KEFLEX CAPSULE) 250 Mg Cp, 1 CAP PO QID for 5 Days, #28 CAP Prov:LISA RIBERA [facility][NOTE 3] 12/31/23 Azithromycin (Azithromycin) 250 Mg Tab, 250 MG PO DAILY MDD 500 for 5 Days, #6 TAB 0 Refills 2 TABLETS ORALLY ON DAY ONE, THEN 1 TABLET ORALLY DAILY FOR 4 DAYS Prov:LISA RIBERA 12/31/23 Thiamine Hcl (VITAMIN B-1) 100 Mg Tb, 100 MG PO DAILY for 30 Days, #30 TAB Prov:LISA RIBERA [facility][NOTE 3] 12/31/23 Spironolactone (Aldactone) 25 Mg Tab, 100 MG PO DAILY for 30 Days, #120 TAB Prov:LISA RIBERA [facility][NOTE 3] 12/31/23 Furosemide (Furosemide) 20 Mg Tab, 40 MG PO DAILY for 30 Days, #60 TAB Prov:LISA RIBERA [facility][NOTE 3] 12/31/23 Aspirin (Aspirin Low Dose) 81 Mg Tab, 81 MG PO DAILY for 30 Days, #30 TAB Prov:LISA RIBERA [facility][NOTE 3] 12/31/23 Multiple Vitamin (Mvi Tab) 1 Tab Tb, 1 TAB PO DAILY, #30 TAB Prov:MAYRA BANKS MD 12/09/23 Thiamine HCl (Thiamine Hydrochloride) 100 Mg Tab, 100 MG PO DAILY, #30 TAB Prov:MAYRA BANKS MD 12/09/23 Folic Acid (Folic Acid) 1 Mg Tab, 1 MG PO DAILY, #30 TAB Prov:MAYRA BANKS MD 12/09/23 Lactulose (Lactulose) 10 Gm/15 Ml Mary, 10 GM PO DAILY for 30 Days, #300 ML Prov:MAYRA BANKS MD 12/09/23 Chlordiazepoxide Hcl (Librium) 25 Mg Cp, 25 MG GT TID for 7 Days, #21 CAP Prov:EMILY SAAVEDRA MD 01/10/23 Amlodipine Besylate (Amlodipine Besylate) 10 Mg Tab, 1 TAB PO DAILY, #30 TAB 5 Refills Prov:ZOE ARTHUR MD 05/09/22 Reported Medications Losartan Potassium (Losartan Potassium) 50 Mg Tab, 1 TAB PO DAILY 05/18/23 Trazodone Hcl (Trazodone Hcl) 50 Mg Tab, 1 TAB PO 05/18/23 Information Source: Patient Mode of Arrival: Wheelchair Severity: Moderate Timing: Days Duration: Since onset Past Medical History PAST MEDICAL HISTORY: Liver Surgical History: Denies all surgeries Family History Family History: Reviewed,noncontributory to illness Social History Smoker: Non-Smoker Alcohol: Heavy Drugs: Denies Drug Use Lives In: Home Constitutional: denies: chills, diaphoresis, fatigue, fever, malaise, sweats, weakness, others EENTM: denies: blurred vision, double vision, ear bleeding, ear discharge, ear drainage, ear pain, ear ringing, eye pain, eye redness, hearing loss, mouth pain, mouth swelling, nasal discharge, nose bleeding, nose congestion, nose pain, photophobia, tearing, throat pain, throat swelling, voice changes, others Respiratory: denies: cough, hemoptysis, orthopnea, SOB at rest, shortness of breath, SOB with excertion, stridor, wheezing, others Cardiovascular: denies: chest pain, dizzy spells, diaphoresis, Dyspnea on exertion, edema, irregular heart beat, left arm pain, lightheadedness, palpitations, PND, syncope, others Gastrointestinal: reports: nausea, vomiting; denies: abdomen distended, abdominal pain, blood streaked bowels, constipated, diarrhea, dysphagia, difficulty swallowing, hematemesis, melena, poor appetite, poor fluid intake, rectal bleeding, rectal pain, others Genitourinary: denies: burning, dysuria, flank pain, frequency, hematuria, incontinence, penile discharge, penile sore, pain, testicle pain, testicle swelling, urgency, others Neurological: reports: dizziness, seizure; denies: fainting, headache, left sided numbness, left sided weakness, numbness, paresthesia, pre-existing deficit, right sided numbness, right sided weakness, speech problems, tingling, tremors, weakness, others Musculoskeletal: denies: back pain, gout, joint pain, joint swelling, muscle pain, muscle stiffness, neck pain, others Integumetry: denies: bruises, change in color, change in hair/nails, dryness, laceration, lesions, lumps, rash, wounds, others Allergic/Immunocompromised: denies: Difficulty Healing, Frequent Infections, Hives, Itching, others Hematologic/Lymphatic: denies: anemia, blood clots, easy bleeding, easy bruising, swollen glands, others Endocrine: denies: excessive hunger, excessive sweating, excessive thirst, excessive urination, flushing, intolerance to cold, intolerance to heat, unexplained weight gain, unexplained weight loss, others Psychiatric: denies: anxiety, bipolar disorder, depression, hopeless, panic disorder, schizophrenia, sleepless, suicidal, others Physical Exam General Appearance: Moderate Distress HEENT: Normal ENT Inspection, Scleral Icterus (L), Scleral Icterus (R), TMs Normal Neck: Full Range of Motion, Non-Tender, Normal, Normal Inspection Respiratory: Chest Non-Tender, Lungs Clear, No Accessory Muscle Use, No Respiratory Distress, Normal Breath Sounds Cardiovascular: No Edema, No JVD, No Murmur, No Gallop, Normal Peripheral Pulses, Tachycardia Breast Exam: Deferred Gastrointestinal: No Organomegaly, Non Tender, No Pulsatile Mass, Normal Bowel Sounds, Soft Genitalia: Deferred Pelvic: Deferred Rectal: Deferred Extremities: No calf tenderness, No pedal edema Musculoskeletal : Apperance: Normal Neurologic: Alert, No Motor Deficits, No Sensory Deficits Cerebellar Function: NOT DONE Reflexes: NOT DONE Skin: Dry, Normal Color, Warm Lymphatic: No Adenopathy Was a procedure done? Was a procedure done?: No Differential Dx Considerations may include: Liver disease Electrolyte imbalance X-Ray, Labs, Meds, VS Vital Signs Date Time Temp Pulse Resp B/P (MAP) Pulse Ox O2 Delivery O2 Flow Rate FiO2 07/10/24 11:57 Room Air* 0 21 07/10/24 11:57 99.0 107 17 118/53 (74) 100 99.0 07/10/24 11:39 99.8 122 16 97/49 (65) 99 99.8 Patient alert. Possible liver disease. Blood pressure on the low side. Tachycardia. Establish intravenous access. Was given fluids. Mild sclerae icterus. Abdomen is soft nontender. Reviewed his history. Explained to the family. Continue cardiac monitoring. Time of 1ST Reevaluation: 11:59 Reevaluation 1ST: Unchanged Patient Education/Counseling: Diagnosis, Treatment, Prognosis Family Education/Counseling: No Family Present Departure 1 Departure Time of Disposition: 12:01 Impression: Primary Impression: Alcoholic liver disease Disposition: ADMITTED INPATIENT Admit to: Med Surg Condition: Guarded Critical Care Note Critical Care Time?: No Stability Stability form required: No Heart Score Heart Score: Heart Score Response (Comments) Value History N/A 0 EKG N/A 0 Age N/A 0 Risk Factors N/A 0 Troponin N/A 0 Total 0 AL AHMADI MD Jul 10, 2024 12:01
[2024-07-10] MEDS: SODIUM CHLORIDE 0.9% 1,000 ML IV ONE ×2 (12:29→13:51)
[2024-07-10 12:31] LABS: Basophils # (auto) 0.1 10 ^3/uL (0-0.2); Eosinophils # (auto) 0.1 10 ^3/uL (0-0.8); Hemoglobin 12.4 g/dL (13.5-17.5); Lymphocytes # (auto) 1.5 10 ^3/uL (0.4-5.4); Neutrophils # (auto) 1.8 10 ^3/uL (1.6-8.6); Nucleated Red Blood Cells % 0.2 %
[2024-07-10 12:33] LABS: Basophils % (auto) 1.6 % (0.0-2.0); Eosinophils % (auto) 3.2 % (0.0-7.0); Lymphocytes % (auto) 40.4 % (10.0-50.0); Mean Corpuscular Hgb Conc. 34.4 g/dL (32.0-36.0); Mean Corpuscular Volume 104.4 fL (80.0-100.0); Monocytes # (auto) 0.2 10 ^3/uL (0-1.3); Monocytes % (auto) 6.2 % (0.0-12.0); Neutrophils % (auto) 48.6 % (37.0-80.0); Platelet Count (auto) 74 10^3/uL (140-450); Red Blood Cells 3.45 10^6/uL (4.5-5.90); Red Cell Distribution Width 14.9 % (11.8-14.3); White Blood Cell 3.8 10^3/uL (4.4-10.8)
[2024-07-10 12:52] LABS: Chloride 107 mmol/L (98-107); Potassium 3.7 mmol/L (3.5-5.1); Sodium 137 mmol/L (136-145)
[2024-07-10 12:53] LABS: Anion Gap 9 (5-15); Carbon Dioxide 21 mmol/L (20-31)
[2024-07-10 12:54] LABS: Calcium 8.3 mg/dL (8.7-10.4)
[2024-07-10 12:59] LABS: Blood Urea Nitrogen 10 mg/dL (9-23); Glucose 97 mg/dL (74-106)
--- NOTE | 2024-07-10 12:59 | DVH ---
EXAM: XY CHEST PORTABLE HISTORY: sob COMPARISON: XY CHEST PORTABLE on DOS: 12/29/23, XY CHEST PORTABLE on DOS: 12/28/23, XY CHEST XRAY 1 VIE W on DOS: 12/08/23, XY CHEST PORTABLE on DOS: 05/18/23, XY CHEST XRAY 1 VIEW on DOS: 01/10/23 TECHNIQUE: Portable upright AP view of the chest was performed. FINDINGS: No pneumothorax, consolidative infiltrates, or pulmonary edema. The heart is enlarged. IMPRESSION: Cardiomegaly without evidence of acute intrathoracic process.
[2024-07-10 13:34] LABS: Urine Bacteria None Seen /hpf (None Seen)
[2024-07-10 13:39] LABS: Urine Blood Negative /uL (Negative); Urine Clarity Clear (Clear); Urine Color Light-Yellow (Yellow); Urine Protein, UAD Negative (Negative); Urine Specific Gravity 1.011 (1.001-1.035); Urine Squamous Epithelial Cell FEW /hpf (<5); Urine Urobilinogen Normal (Negative); Urine WBC < 1 /HPF (0-3)
[2024-07-10] MEDS: ONDANSETRON HCL 4 MG/2 ML VIAL IV ONE (20:00)
--- NOTE | 2024-07-10 21:05 | DVH ---
EXAM: CT HEAD WITHOUT CONTRAST INDICATION: seizure TECHNIQUE: CT of the head without intravenous contrast. Radiation Dose Information: CT Dose: CTDI volume is 61.83 mGy. Dose-length product is 991.01 mGy*cm The dose indicators for CT are the volume Computed Tomography (CT) Dose Index (CTDIvol) and the Dose Length Product (DLP), and are measured in units of mGy and mGy-cm, respectively. These indicators are not patient dose, but values generated from the CT scanner acquisition factors. The report includes radiation exposure data for exposures received during this examination. COMPARISON: CT HEAD WITHOUT CONTRAST on DOS: 05/18/23, HEAD WITHOUT CONTRAST on DOS: 05/08/22 FINDINGS: There is no evidence of acute intracranial hemorrhage, extra-axial collection, mass effect, midline s hift, herniation or hydrocephalus. The ventricles, sulci and cisterns are age appropriate. The singleton-white differentiation is intact. Patchy periventricular and subcortical white matter hypoattenuation is nonspecific but may be related to small vessel ischemic disease. 2 small calcifications in the maxillary sinuses bilaterally. On the right and measures 6 mm on the le ft are 2 and the largest measures 8-9 mm. These may represent small osteomas. They appear unimpinged changed from prior study of 05/08/2022 The mastoid air cells are clear. The surrounding soft tissues and osseous structures are unremarkable. IMPRESSION: 1. No acute intracranial hemorrhage 2. No CT findings of territorial ischemia. 3. 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 No intracranial mass or mass effect. HS:Y
[2024-07-10] MEDS: cefTRIAXone 1GM/50ML D5W 50 ML IV ONE (23:00)
--- NOTE | 2024-07-10 23:13 | DVHHPRES ---
History of Present Illness Resident Creating Document: ARIEL AREVALO RESIDENT Reason for Visit: SEIZURE, GENERALIZED WEAKNESS History of Present Illness Patient is a 39 year old male with past medical history of Alcoholic liver cirrhosis s/p many paracentesis with the last paracentesis being in 12/2023 prese nted to ED with a complaint of generalized weakness and seizure-like activity. Per the patient, he had tremor at home and on his way to the hospital. His hands feet felt stiff that he had to manually manually stretched his digits to extend his hands. Patient stated that he was having headache all day yesterday and this morning he could not get out of bed. He felt like the room was spinning. Unable to stand on his feet without feeling dizzy. He vomited twice today and his extremities felt cold he also mentioned that his urine was dark.Patient said he has not had a drink since his quit drinking about 7 months ago. Patient denies hypertension, diabetes. Initial lab in the ED revealed pancytopenia (WBC 3.8, hemoglobin 12.4, platelets 74), Chest x-ray showed cardiomegaly without evidence of acute intrathoracic process and CT head was unremarkable. Of note, his last admission here was in 12/2023 where patient was managed for Sepsis secondary to pneumonia, Spontaneous bacterial peritonitis, pleural effusion, Hypervolemic hyponatremia secondary to fluid overload, Alcoholic liver cirrhosis,Ascites. Past medical history: liver cirrhosis secondary to alcohol Surgical history: Multiple paracentesis Medication: Furosemide and spironolactone Family history: Noncontributory Social history: Melia lives at home works as a electro mechanical technician Past Medical History See HPI Past Surgical History See HPI Review of Systems Review of Systems Constitutional: Denies fever; chills, feeling of malaise HEENT: Denies headache, ear pain, ear discharges, conjunctivitis, nasal discharge throat pain Cardiovascular: Denies chest pain, palpitation, orthopnea, PND, or pedal edema Respiratory: Denies shortness of breath, cough cough, sputum production, hemoptysis, GI: Denies abdominal pain, nausea, vomiting, diarrhea, hematemesis, hematochezia, : Denies frequency, urgency, hematuria, Endocrine: Denies unintentional weight gain or weight loss, feeling of hot flashes, Caesar: Denies easy bruising, bleeding disorders; epistaxis Musculoskeletal: Denies joint pains, muscle aches Psych: No evidence of depression, anson, suicidal ideation Allergies: Coded Allergies: NO KNOWN ALLERGIES (Unverified , 05/08/22) Exam Vital Signs Vital Signs Date Time Temp Pulse Resp B/P (MAP) Pulse Ox O2 Delivery O2 Flow Rate FiO2 07/10/24 22:14 90 20 107/45 (65) 99 07/10/24 19:30 Room Air* 0 21 07/10/24 16:00 98.7 98.7 Exam General Appearance: Alert, Oriented X3, Cooperative, No acute distress HEENT: Atraumatic, PERRLA, EOMI, Mucous membrane moist/pink Respiratory: Clear to auscultation, Normal air movement Cardiovascular: Regular rate, Normal S1, Normal S2, No murmurs, no chest wall tenderness Abdominal: NO distention, no tenderness, bowel sounds present, no scars noted, stretched jacobs noted on his abdomen and Extremities: No clubbing, No cyanosis, No edema, Normal pulses, No tenderness/swelling, No flapping tremors noted Skin: No rashes, No breakdown, No significant lesion Neuro: Normal gait, Normal speech, Strength at 5/5 X4 ext, Normal tone, Sensation intact, Cranial nerves 3-12 NL, Reflexes 2+ Psych/Mental Status: Mental status NL, Mood NL Labs/Xrays Labs Test 07/10/24 13:25 07/10/24 12:22 Range/Units Urine Color Light-yellow Yellow Urine Clarity Clear Clear Urine pH 7.0 5.0-9.0 Urine Specific Topping 1.011 1.001-1.035 Urine Protein Negative Negative Urine Ketones Negative Negative Urine Blood Negative Negative /uL Urine Nitrite Negative Negative Urine Bilirubin Negative Negative Urine Urobilinogen Normal Negative mg/dL Urine Leukocyte Esterase Negative Negative /uL Urine RBC None seen 0 - 3 /hpf Urine Microscopic WBC < 1 0-3 /HPF Urine Squamous Epithelial Cells Few <5 /hpf Urine Bacteria None seen None Seen /hpf Urine Glucose Normal Normal mg/dL White Blood Count 3.8 L 4.4-10.8 10^3/uL Red Blood Count 3.45 L 4.5-5.90 10^6/uL Hemoglobin 12.4 L 13.5-17.5 g/dL Hematocrit 36.0 L 41.0-53.0 % Mean Corpuscular Volume 104.4 H 80.0-100.0 fL Mean Corpuscular Hemoglobin 36.0 H 28.0-32.0 pg Mean Corpuscular Hemoglobin Concent 34.4 32.0-36.0 g/dL Red Cell Distribution Width 14.9 H 11.8-14.3 % Platelet Count 74 L 140-450 10^3/uL Mean Platelet Volume 9.1 6.9-10.8 fL Neutrophils (%) (Auto) 48.6 37.0-80.0 % Lymphocytes (%) (Auto) 40.4 10.0-50.0 % Monocytes (%) (Auto) 6.2 0.0-12.0 % Eosinophils (%) (Auto) 3.2 0.0-7.0 % Basophils (%) (Auto) 1.6 0.0-2.0 % Neutrophils # (Auto) 1.8 1.6-8.6 10 ^3/uL Lymphocytes # (Auto) 1.5 0.4-5.4 10 ^3/uL Monocytes # (Auto) 0.2 0-1.3 10 ^3/uL Eosinophils # (Auto) 0.1 0-0.8 10 ^3/uL Basophils # (Auto) 0.1 0-0.2 10 ^3/uL Nucleated Red Blood Cells 0.2 % Sodium Level 137 136-145 mmol/L Potassium Level 3.7 3.5-5.1 mmol/L Chloride Level 107 98-107 mmol/L Carbon Dioxide Level 21 20-31 mmol/L Anion Gap 9 5-15 Blood Urea Nitrogen 10 9-23 mg/dL Creatinine 0.83 0.700-1.30 mg/dL Glomerular Filtration Rate Calc 113 >90 mL/min BUN/Creatinine Ratio 12.0 10.0-20.0 Serum Glucose 97 74-106 mg/dL Calcium Level 8.3 L 8.7-10.4 mg/dL Ammonia 15 11-32 umol/L Troponin I High Sensitivity 9 </=54 ng/L Assessment/Plan Assessment/Plan Assessment Sepsis Pancytopenia Obesity grade II, BMI of 35.3 Liver cirrhosis status post multiple paracentesis in the past 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 Goal of care discussed for more than 30minutes: full code Case and plan discussed with Dr. Fernández Plan discussed with: Patient My Orders Orders - ARIEL AREVALO RESIDENT Procedure Category Date Status Time Admit ADMIT 07/10/24 Verified 22:56 Code Status CODE 07/10/24 Verified 22:56 Vital Signs [facility] 07/10/24 Verified 22:56 Review Orders With [facility] 07/10/24 Verified Adm. 22:56 Notify Md Of Changes [facility] 07/10/24 Verified From Base 22:56 Advance Directive [facility] 07/10/24 Verified 22:56 Blood Culture ANATOLY 07/10/24 Verified 22:56 Patient Condition ORDERS 07/10/24 Verified 22:56 Allergies [facility] 07/10/24 Verified 22:56 Ondansetron Hcl PHA 07/10/24 Verified (Zofran) 23:00 Hemoglobin A1c LAB 07/10/24 Verified 22:56 Sequential [facility] 07/10/24 Verified Compression Device Notify Md Of Changes [facility] 07/10/24 Verified From Base 22:56 Supervisor Weaving For [facility] 07/10/24 Verified 24 Hours 22:56 Drug Screen LAB 07/10/24 Verified 22:56 Blood Alcohol LAB 07/10/24 Verified 22:56 Date of Service: Jul 10, 2024 Billing Provider: BRAYAN FERNÁNDEZ MD Common Visit Codes: [id number] INP/OBS CARE (HIGH) ARIEL AREVALO RESIDENT Jul 10, 2024 23:13 BRAYAN FERNÁNDEZ MD Jul 11, 2024 11:34
[2024-07-10 23:48] VITALS: BP 108/54; PULSE 75; RESP 18; TEMP 98.5; O2SAT 98
[2024-07-11] VITALS (7 sets, daily range): BP systolic 95–115; BP diastolic 39–62; PULSE 66–79; RESP 16–18; TEMP 98.1–98.7; O2SAT 96–99
[2024-07-11 00:06] LABS: Alanine Aminotransferase 38 U/L (7-40); Total Protein 6.4 g/dL (5.7-8.2)
[2024-07-11 00:07] LABS: Albumin 2.9 g/dL (3.2-4.8); Alkaline Phosphatase 171 U/L (46-116); Aspartate Aminotransferase 45 U/L (13-40); Bilirubin, Direct 1.2 mg/dL (<0.3); Bilirubin, Total 2.7 mg/dL (0.2-1.0); Blood Alcohol < 3.0 mg/dL (<10)
[2024-07-11 00:18] LABS: INR 1.37 (0.9-1.15); Partial Thromboplastin Time 36.7 SEC (24.5-34.5); Prothrombin Time 14.1 sec (9.3-11.8)
[2024-07-11] MEDS ORDERED: FURO40TA4 PO (00:19)
[2024-07-11] MEDS ORDERED: SPIR50TA5 PO (00:19)
[2024-07-11] MEDS ORDERED: LACT10SO3 PO (00:21)
[2024-07-11] MEDS ORDERED: LORazepam 2MG/ML-1ML VIAL IV PRN (00:30)
[2024-07-11 05:56] LABS: Basophils # (auto) 0 10 ^3/uL (0-0.2); Eosinophils # (auto) 0.2 10 ^3/uL (0-0.8); Eosinophils % (auto) 5.7 % (0.0-7.0); Hemoglobin 11.1 g/dL (13.5-17.5); Monocytes # (auto) 0.4 10 ^3/uL (0-1.3); Neutrophils # (auto) 1.7 10 ^3/uL (1.6-8.6); Red Cell Distribution Width 14.8 % (11.8-14.3); White Blood Cell 4.3 10^3/uL (4.4-10.8)
[2024-07-11 05:58] LABS: Lymphocytes % (auto) 45.4 % (10.0-50.0); Mean Corpuscular Hemoglobin 36.1 pg (28.0-32.0); Mean Corpuscular Hgb Conc. 34.7 g/dL (32.0-36.0); Monocytes % (auto) 9.1 % (0.0-12.0); Neutrophils % (auto) 38.8 % (37.0-80.0); Nucleated Red Blood Cells % 0.4 %; Platelet Count (auto) 66 10^3/uL (140-450); Red Blood Cells 3.08 10^6/uL (4.5-5.90)
[2024-07-11 06:10] LABS: Alanine Aminotransferase 32 U/L (7-40); Anion Gap 5 (5-15); Aspartate Aminotransferase 39 U/L (13-40); BUN/Creatinine Ratio 11.3 (10.0-20.0); Carbon Dioxide 23 mmol/L (20-31); Glucose 92 mg/dL (74-106); Potassium 3.9 mmol/L (3.5-5.1); Sodium 138 mmol/L (136-145)
[2024-07-11 06:15] LABS: Albumin 2.6 g/dL (3.2-4.8); Alkaline Phosphatase 139 U/L (46-116); Bilirubin, Total 2.4 mg/dL (0.2-1.0); Blood Urea Nitrogen 9 mg/dL (9-23); Calcium 8.2 mg/dL (8.7-10.4); Chloride 110 mmol/L (98-107); Total Protein 5.7 g/dL (5.7-8.2)
[2024-07-11] MEDS: ALBUMIN 25% 50 ML IV ONE (10:06)
[2024-07-11 10:43] LABS: Folate (Folic Acid) 12.05 ng/mL (>5.38)
--- NOTE | 2024-07-11 11:40 | DVH ---
INDICATION: Check for hepatic vein thrombus. TECHNIQUE: Multiple real-time sonographic images were obtained of the liver. COMPARISON: US ABDOMEN LIMITED on DOS: 12/28/23, US LIVER on DOS: 12/05/23, US LIVER on DOS: 05/19/23, AB DL on DOS: 05/08/22, ABDOMEN LIMITED on DOS: 05/08/22 FINDINGS: The liver demonstrates coarsened echotexture without focal mass lesions. The liver measures routine cm. There is no intrahepatic or extrahepatic ductal dilatation. The hepatic veins appear pa tent. The visualized portions of the inferior vena cava appear patent. Portal vein is patent with ant egrade flow. IMPRESSION: Hepatic cirrhosis. Patent hepatic veins and portal vein. Incidentally seen small right pleural effus ion.
--- NOTE | 2024-07-11 13:23 | DVHPNRES ---
Progress Note Date Seen: Jul 11, 2024 Resident Creating Document: PORFIRIO STEPHENS RESIDENT Medical Necessity Reason Pt with a Central, PICC or Fol: No Subjective Review of Systems DUPONTCHRISTI DOS SANTOSKIM MEDEL is a 39-year-old male with a PMH of alcoholic liver cirrhosis presented to the ED with the chief complaints of generalized weakness and dizziness since yesterday. Patient reported he has been started working recently and has been not taking enough oral intake and he is taking Lasix and spironolactone which he felt more dehydrated and dizziness which brought him to visit ED. patient also reported he has been having muscle cramps and stiffness sometimes likely attributed to usage of diuretics and patient reported that he has been informed regarding this by his GI and PCP. Today on my assessment patient denies fever, nausea, vomiting, abdominal pain, shortness of breath, melena, hematemesis and other acute associated symptoms. PMH: Alcoholic liver cirrhosis PSH: Paracentesis Family history: Noncontributory Social history: Lives at home. Denies smoking, alcohol and other drug abuse (former alcohol abuser but been on abstinence for 7 months) Medications: Furosemide and spironolactone Allergies: No known allergies Patient seen and examined at the bedside. Patient reported improvement in his symptoms since admission. Currently monitoring CBC. Liver ultrasound showed hepatic cirrhosis. Patient reports: No new complaints Objective vital signs Vital Sign Date Time Temp Pulse Resp B/P (MAP) Pulse Ox O2 Delivery O2 Flow Rate FiO2 07/11/24 08:30 98.4 70 16 103/58 (73) 98 98.4 07/11/24 00:11 Room Air* 0 21 Total Intake and Output 07/10/24 07/10/24 07/11/24 15:00 23:00 07:00 Intake Total 1150 ml 450 ml 0 ml Balance 1150 ml 450 ml 0 ml medications Current Medications Medications Dose Ordered Sig/Kiara Route Start Time Stop Time Status Last Admin Dose Admin Ondansetron HCl 4 mg Q4HP PRN IV 07/10/24 23:00 Ceftriaxone Sodium 50 ml @ 100 mls/hr DAILY@09 IV 07/12/24 09:00 Lorazepam 1 mg Q5MINP PRN IV 07/11/24 00:30 Metronidazole 100 ml @ 100 mls/hr Q8HR IV 07/11/24 14:00 Examination Pt is lying on bed General Appearance: Alert, Oriented X3, Cooperative, Not in acute distress HEENT: Atraumatic, Mucous membranes moist/pink Respiratory: Clear to auscultation, Normal air movement, No added sounds Cardiovascular: Regular rate, Normal S1, Normal S2, No murmurs Abdominal: Active bowel sounds, Soft, no distention, no tenderness Extremities: No edema, Normal pulses, No tenderness/swelling Skin: No Significant rash, except past surgical scars Neuro: Normal speech, sensorimotor deficits none Psych/Mental Status: Mental status NL, Mood NL Nurse was there as sharperone during examination laboratory and microbiology Laboratory Tests 07/11/24 04:59 Test 07/11/24 04:59 Range/Units Serum Glucose 92 74-106 mg/dL Labs and/or images reviewed: Labs reviewed by me, Image(s) reviewed by me Problem List/Assessment/Plan Problem List/Assessment/Plan # Dizziness likely from dehydration # dehydration - currently on IVF - hold diuretics - monitor lab # liver cirrhosis # pancytopenia likely from above # transaminitis likely from above # hyperbilirubinemia - liver ultrasound showed hepatic cirrhosis with a patent portal veins - outpatient follow up Protonix SCDs Hepatic diet Goals of care discussed with the patient for more than 29 minutes: Full code status Case discussed with Dr. Simmons, patient and nurse Plan discussed with: Patient My Orders My Orders Orders - PORFIRIO STEPHENS Procedure Category Date Status Time Drug Screen LAB 07/11/24 Logged 08:12 Date of Service: Jul 11, 2024 Billing Provider: KACI ULLOA MD Common Visit Codes: [id number] INP/OBS CARE(HIGH) PORFIRIO STEPHENS RESIDENT Jul 11, 2024 13:23 KACI ULLOA MD Jul 14, 2024 00:00
[2024-07-11] MEDS: CYANOCOBALAMIN (B-12) 1000 MCG/1 ML VIAL IM ONE (13:38)
[2024-07-11] MEDS: metroNIDAZOLE 500MG/100ML 100 ML IV SCH (13:39)
[2024-07-11] MEDS: FOLIC ACID 1 MG TAB PO ONE (13:39)
[2024-07-11] MEDS: THIAMINE HCL 100 MG TAB PO ONE (13:39)
[2024-07-11 22:03] LABS: Rapid Influenza A Negative (Negative); Rapid Influenza B Negative (Negative)
[2024-07-11 22:04] LABS: COVID19 ANTIGEN SOFIA FIA NEGATIVE (NEGATIVE)
[2024-07-12] VITALS (7 sets, daily range): BP systolic 98–102; BP diastolic 51–58; PULSE 58–80; RESP 17–19; TEMP 97.6–98; O2SAT 96–99
[2024-07-12 06:51] LABS: Basophils # (auto) 0.1 10 ^3/uL (0-0.2); Eosinophils # (auto) 0.3 10 ^3/uL (0-0.8); Mean Corpuscular Hgb Conc. 34.5 g/dL (32.0-36.0); Monocytes # (auto) 0.4 10 ^3/uL (0-1.3)
[2024-07-12 06:55] LABS: Basophils % (auto) 1.1 % (0.0-2.0); Eosinophils % (auto) 6.5 % (0.0-7.0); Hematocrit 34.6 % (41.0-53.0); Lymphocytes # (auto) 1.8 10 ^3/uL (0.4-5.4); Lymphocytes % (auto) 41.8 % (10.0-50.0); Mean Corpuscular Hemoglobin 36.1 pg (28.0-32.0); Mean Corpuscular Volume 104.6 fL (80.0-100.0); Monocytes % (auto) 9.2 % (0.0-12.0); Neutrophils # (auto) 1.8 10 ^3/uL (1.6-8.6); Neutrophils % (auto) 41.4 % (37.0-80.0); Nucleated Red Blood Cells % 0.5 %; Platelet Count (auto) 69 10^3/uL (140-450); Red Blood Cells 3.31 10^6/uL (4.5-5.90); Red Cell Distribution Width 14.8 % (11.8-14.3); White Blood Cell 4.4 10^3/uL (4.4-10.8)
[2024-07-12 07:10] LABS: Alanine Aminotransferase 33 U/L (7-40); Anion Gap 6 (5-15); BUN/Creatinine Ratio 10.7 (10.0-20.0); Calcium 8.7 mg/dL (8.7-10.4); Carbon Dioxide 23 mmol/L (20-31); Glucose 82 mg/dL (74-106); Sodium 138 mmol/L (136-145); Total Protein 6.4 g/dL (5.7-8.2)
[2024-07-12 07:11] LABS: Alkaline Phosphatase 170 U/L (46-116); Aspartate Aminotransferase 42 U/L (13-40); Bilirubin, Total 2.2 mg/dL (0.2-1.0); Blood Urea Nitrogen 9 mg/dL (9-23); Chloride 109 mmol/L (98-107)
[2024-07-12] MEDS: FUROSEMIDE 20 MG TAB PO ONE (11:56)
[2024-07-12] MEDS: cefTRIAXone 1GM/50ML D5W 50 ML IV SCH (11:56)
[2024-07-12] MEDS: SPIRONOLACTONE 25 MG TAB PO ONE (11:56)
[2024-07-12] MEDS: SODIUM CHLORIDE 0.9% 1,000 ML IV ONE (11:57)
[2024-07-12] MEDS: ONDANSETRON HCL 4 MG/2 ML VIAL IV PRN (14:31)
--- NOTE | 2024-07-12 16:30 | DVHDSRES ---
Discharge Summary Date of Admission Resident Creating Document: PORFIRIO STEPHENS RESIDENT Jul 10, 2024 at 22:56 Date of Discharge: Jul 12, 2024 Admitting Diagnosis Dizziness Labs/Diagnostic Data: Laboratory Results Test 07/12/24 06:00 07/11/24 17:15 07/11/24 04:59 07/10/24 23:35 White Blood Count 4.4 10^3/uL (4.4-10.8) Red Blood Count 3.31 10^6/uL (4.5-5.90) Hemoglobin 12.0 g/dL (13.5-17.5) Hematocrit 34.6 % (41.0-53.0) Mean Corpuscular Volume 104.6 fL (80.0-100.0) Mean Corpuscular Hemoglobin 36.1 pg (28.0-32.0) Mean Corpuscular Hemoglobin Concent 34.5 g/dL (32.0-36.0) Red Cell Distribution Width 14.8 % (11.8-14.3) Platelet Count 69 10^3/uL (140-450) Mean Platelet Volume 9.1 fL (6.9-10.8) Neutrophils (%) (Auto) 41.4 % (37.0-80.0) Lymphocytes (%) (Auto) 41.8 % (10.0-50.0) Monocytes (%) (Auto) 9.2 % (0.0-12.0) Eosinophils (%) (Auto) 6.5 % (0.0-7.0) Basophils (%) (Auto) 1.1 % (0.0-2.0) Neutrophils # (Auto) 1.8 10 ^3/uL (1.6-8.6) Lymphocytes # (Auto) 1.8 10 ^3/uL (0.4-5.4) Monocytes # (Auto) 0.4 10 ^3/uL (0-1.3) Eosinophils # (Auto) 0.3 10 ^3/uL (0-0.8) Basophils # (Auto) 0.1 10 ^3/uL (0-0.2) Nucleated Red Blood Cells 0.5 % Sodium Level 138 mmol/L (136-145) Potassium Level 4.0 mmol/L (3.5-5.1) Chloride Level 109 mmol/L (98-107) Carbon Dioxide Level 23 mmol/L (20-31) Anion Gap 6 (5-15) Blood Urea Nitrogen 9 mg/dL (9-23) Creatinine 0.84 mg/dL (0.700-1.30) Glomerular Filtration Rate Calc 113 mL/min (>90) BUN/Creatinine Ratio 10.7 (10.0-20.0) Serum Glucose 82 mg/dL (74-106) Calcium Level 8.7 mg/dL (8.7-10.4) Total Bilirubin 2.2 mg/dL (0.2-1.0) Aspartate Amino Transferase (AST) 42 U/L (13-40) Alanine Aminotransferase (ALT) 33 U/L (7-40) Alkaline Phosphatase 170 U/L (46-116) Total Protein 6.4 g/dL (5.7-8.2) Albumin 3.0 g/dL (3.2-4.8) Influenza Type A Antigen Negative (Negative) Influenza Type B Antigen Negative (Negative) SARS-CoV-2 Antigen (Rapid) Negative (NEGATIVE) Vitamin B12 Level 880 pg/mL (211-911) Folic Acid 12.05 ng/mL (>5.38) Thyroid Stimulating Hormone (TSH) 1.68 uIU/mL (0.55-4.78) Prothrombin Time 14.1 sec (9.3-11.8) Prothrombin Time INR 1.37 (0.9-1.15) Activated Partial Thromboplast Time 36.7 SEC (24.5-34.5) Hemoglobin A1c 4.3 % A1C (<5.7) Lactic Acid Level 1.4 mmol/L (0.4-2.0) Direct Bilirubin 1.2 mg/dL (<0.3) Plasma/Serum Blood Alcohol < 3.0 mg/dL (<10) Test 07/10/24 13:25 07/10/24 12:22 Urine Color Light-yellow (Yellow) Urine Clarity Clear (Clear) Urine pH 7.0 (5.0-9.0) Urine Specific [place] 1.011 (1.001-1.035) Urine Protein Negative (Negative) Urine Ketones Negative (Negative) Urine Blood Negative /uL (Negative) Urine Nitrite Negative (Negative) Urine Bilirubin Negative (Negative) Urine Urobilinogen Normal mg/dL (Negative) Urine Leukocyte Esterase Negative /uL (Negative) Urine RBC None seen /hpf (0 - 3) Urine Microscopic WBC < 1 /HPF (0-3) Urine Squamous Epithelial Cells Few /hpf (<5) Urine Bacteria None seen /hpf (None Seen) Urine Glucose Normal mg/dL (Normal) Ammonia 15 umol/L (11-32) Troponin I High Sensitivity 9 ng/L (</=54) Other Laboratory Tests 07/12/24 06:00 Brief Hx & Hospital Course: KIM DUPONT JR is a 39-year-old male with a PMH of alcoholic liver cirrhosis presented to the ED with the chief complaints of generalized weakness and dizziness since yesterday. Patient reported he has been started working recently and has been not taking enough oral intake and he is taking Lasix and spironolactone which he felt more dehydrated and dizziness which brought him to visit ED. patient also reported he has been having muscle cramps and stiffness sometimes likely attributed to usage of diuretics and patient reported that he has been informed regarding this by his GI and PCP. Today on my assessment patient denies fever, nausea, vomiting, abdominal pain, shortness of breath, melena, hematemesis and other acute associated symptoms. Patient required hospital admission for further evaluation and management. We held the patient's home medication Lasix and Aldactone. Liver ultrasound showed hepatic cirrhosis with patent portal veins. Patient will likely have dizziness from dehydration due to decreased fluid intake. Gradually initiated his Lasix and Aldactone and monitored his clinical status and now patient is in condition to be discharged home. Patient was advised about healthy lifestyle modification including diet, exercise and enough fluid intake to follow up with PCP and GI doctor. Pt is lying on bed General Appearance: Alert, Oriented X3, Cooperative, Not in acute distress HEENT: Atraumatic, Mucous membranes moist/pink Respiratory: Clear to auscultation, Normal air movement, No added sounds Cardiovascular: Regular rate, Normal S1, Normal S2, No murmurs Abdominal: Active bowel sounds, Soft, no distention, no tenderness Extremities: No edema, Normal pulses, No tenderness/swelling Skin: No Significant rash, except past surgical scars Neuro: Normal speech, sensorimotor deficits none Psych/Mental Status: Mental status NL, Mood NL Nurse was there as sharperone during examination Operations or Procedures liver ultrasound showed hepatic cirrhosis with a patent portal veins Condition at Discharge: Stable Final Diagnosis/Problems List # Dizziness likely from dehydration # dehydration # liver cirrhosis # pancytopenia likely from above # transaminitis likely from above # hyperbilirubinemia # Ruled out seizures # Ruled out sepsis # Ruled out Met encephalopathy Discharge Disposition: Home Discharge Instruct/Medications Diet: See Comment Diet comment: hepatic diet Activity: No Restrictions, As Tolerated Follow Up/Referral: PCP and GI Medications: Resume home meds Discharge Statement: "Patient was advised to return to the ER or call 911 if any headaches, dizziness, shortness of breath, chest pain, abdominal pain, bleeding, fevers, or worsening of medical condition. Patient was counseled about treatment plan, medications, possible side effects, patientverbalized understanding. All questions were answered to the best of my ability. This discharge took greater then 30 minutes in planning, reviewing documentation, counseling the patient, and discussing with other team members." ASSESSMENT ASSESSMENT Assessment # Dizziness likely from dehydration # dehydration # liver cirrhosis # pancytopenia likely from above # transaminitis likely from above # hyperbilirubinemia PORFIRIO STEPHENS RESIDENT Jul 12, 2024 16:30
[2024-07-13] MEDS ORDERED: FUROSEMIDE 20 MG TAB PO SCH (10:00)
[2024-07-13] MEDS ORDERED: SPIRONOLACTONE 25 MG TAB PO SCH (10:00)
== END 2024-07-12 19:45 | disposition home or self-care (01) | DRG 422 ==
LOC: ER 11:30 → OVERFLOW 22:56 → TELE-CENTR 23:31
PROVIDERS: ADMIT Student in an Organized Health Care Education/Training Program; ATTEND Emergency Medicine
DX: E86.0 Dehydration (principal); D61.818 Other pancytopenia; D68.9 Coagulation defect, unspecified; K70.30 Alcoholic cirrhosis of liver without ascites; E66.9 Obesity, unspecified; R04.0 Epistaxis; Z20.822 Contact with and (suspected) exposure to COVID-19; I51.7 Cardiomegaly; E80.6 Other disorders of bilirubin metabolism; R74.01 Elevation of levels of liver transaminase levels; F10.10 Alcohol abuse, uncomplicated; Z79.2 Long term (current) use of antibiotics; Z79.899 Other long term (current) drug therapy; Z79.82 Long term (current) use of aspirin; Z68.35 Body mass index [BMI] 35.0-35.9, adult; Y90.0 Blood alcohol level of less than 20 mg/100 ml
CPT/HCPCS: 36415; 70450; 71045; 76705; 80048; 80053; 80076; 80320; 81001; 82140; 82607; 82746; 83036; 83605; 84443; 84484; 85025; 85610; 85730; 87040; 87426; 87804; 96365; 96375; G0378; J2405; J3490

== ENCOUNTER 2025-02-05 12:03 | Emergency (ER) | payer MEDICAID ==
[~2025-02-05] VITALS: Ht 172.7 cm; Wt 95.4 kg
[~2025-02-05 12:03] MED LIST changes: -AMLO1TAB23 PO; -ASPI-325 PO; -AZIT-43 PO; -CEPH250C PO; -CHL25C GT; -FOLI-119 PO; -FURO20TA4 PO; +FURO40TA4 PO; -LOSA-534 PO; -MULTTAB99 PO; -SPIR25TA PO; +SPIR50TA5 PO; -THIA100T10 PO; -THIA100T13 PO; -TRAZ-227 PO
--- NOTE | 2025-02-05 13:02 | ED.PDOC ---
Musculoskeletal HPI Comments This is a 40-year-old male who comes in after his arm was getting caught in a screen door has pain in his right hand.. States very painful when moving fingers no other injuries Chief Complaint: Upper Extremity Time Seen by MD: 12:59 Primary Care Provider: Elbert Ferro Reviewed Notes: Nurses Notes, Medications, Allergies Allergies: Coded Allergies: NO KNOWN ALLERGIES (Unverified , 05/08/22) Home Meds Reported Medications Lactulose (Lactulose) 10 Gm/15 Ml Mary, 15 ML PO PRN for BOWEL MANAGEMENT 07/11/24 Furosemide (Furosemide) 40 Mg Tab, 20 TAB PO DAILY 07/11/24 Spironolactone (Spironolactone) 50 Mg Tab, 1 TAB PO DAILY 07/11/24 Information Source: Patient Mode of Arrival: Ambulatory Past Medical History PAST MEDICAL HISTORY: Liver Surgical History: Denies all surgeries Family History Family History: Reviewed,noncontributory to illness Social History Smoker: Non-Smoker Alcohol: Heavy Drugs: Denies Drug Use Lives In: Home Musculoskeletal: reports: joint pain, joint swelling, muscle pain All Other Systems: Reviewed and Negative Physical Exam General Appearance: No Apparent Distress, None, Normal HEENT: Normal ENT Inspection, PERRL/EOMI, Pharynx Normal, TMs Normal Neck: Full Range of Motion, Non-Tender, Normal, Normal Inspection, Supple Respiratory: Lungs Clear, No Respiratory Distress, Normal Breath Sounds Cardiovascular: Regular Rate/Rhythm Breast Exam: Deferred Gastrointestinal: Non Tender, Soft Genitalia: Deferred Pelvic: Deferred Rectal: Deferred Extremities: Swelling, Tender (Right hand with swelling across the 4th and 5th finger and some bruising, pain with range of motion of the fingers) Neurologic: Alert, No Motor Deficits, Normal Mood Cerebellar Function: NOT DONE Reflexes: Normal Skin: Dry, Warm Lymphatic: No Adenopathy Was a procedure done? Was a procedure done?: No Differential Diagnosis EXT Differential Diagnosis: Sprain, Dislocation X-Ray, Labs, Meds, VS Vital Signs Date Time Temp Pulse Resp B/P (MAP) Pulse Ox O2 Delivery O2 Flow Rate FiO2 02/05/25 12:04 100.3 115 16 147/103 98 100.3 X-Ray, Labs, Meds, VS Comment Patient seen and examined by me. Patient has injury to the right hand screen door fell on his knee. Injury. X-ray of the right hand will be done to rule out a fracture.. Because of the patient's fracture. He will need a splint. Patient is unable to take any pain medicines secondary to his cirrhosis., patient to follow up outpatient with his primary care for a referral to Orthopedics. ORDERING PHYSICIAN: CARLIE GARY PROCEDURE(s): RHAN - R HAND 3 VIEW XRAY REASON: door closed on right hand ORDER NUMBER(s): [id number], ACCESSION NUMBER(s): [id number] CLINICAL INDICATION: door closed on right hand TECHNIQUE: 4 radiographic views of the right hand were obtained. Comparison: None FINDINGS/IMPRESSION: Mildly displaced comminuted fracture 5th metacarpal. No other digital fractures visualized. No radiopaque foreign bodies. Time of 1ST Reevaluation: 13:53 Reevaluation 1ST: Improved Patient Education/Counseling: Diagnosis, Treatment, Prognosis, Need For Follow Up Family Education/Counseling: No Family Present Departure 1 Departure Time of Disposition: 13:54 Impression: Primary Impression: Fracture of fifth metacarpal bone of right hand Disposition: 01 HOME / SELF CARE / HOMELESS Condition: Good Additional Instructions: Please use the splint at all times until you follow up with orthopedics Rest elevate your hand Follow up with your primary tomorrow bring a copy of the x-ray to show him that you need a referral to Orthopedics Discharged With: Self Critical Care Note Critical Care Time?: No Stability Stability form required: No CARLIE GARY Feb 05, 2025 13:02
--- NOTE | 2025-02-05 13:46 | DVH ---
CLINICAL INDICATION: door closed on right hand TECHNIQUE: 4 radiographic views of the right hand were obtained. Comparison: None FINDINGS/IMPRESSION: Mildly displaced comminuted fracture 5th metacarpal. No other digital fractures visualized. No radiopaque foreign bodies.
[2025-02-05 14:17] VITALS: BP 130/70; PULSE 75; RESP 18; TEMP 98.4; O2SAT 99
== END 2025-02-05 14:21 | disposition home or self-care (01) ==
LOC: ER 12:03
DX: S62.306A Unspecified fracture of fifth metacarpal bone, right hand, initial encounter for closed fracture (principal); W23.0XXA Caught, crushed, jammed, or pinched between moving objects, initial encounter; Y93.89 Activity, other specified; Y92.89 Other specified places as the place of occurrence of the external cause; Y99.8 Other external cause status
CPT/HCPCS: 29125; 73130